=== PATIENT | female | born 1960 | race Hispanic/Latino ===

== ENCOUNTER 2020-03-05 00:09 | Inpatient (IN) | payer MEDICAID ==
[~2020-03-05] VITALS: Ht 157.5 cm; Wt 111.3 kg
[2020-03-05] MEDS ORDERED: FUROSEMIDE 10 MG/ML 2ML VIAL ONE ×2 (00:17→05:59)
[2020-03-05] MEDS ORDERED: CEFTRIAXONE SODIUM 2 GM VIAL ONE (00:27)
[2020-03-05] MEDS ORDERED: SODIUM CHLORIDE 0.9% 100 ML IV ONE (00:28)
[2020-03-05 00:39] LABS: ABG BASE EXCESS -9.3 mmol/L (-2.0-3.0); ABG HCO3 14.9 mmol/L (21.0-28.0); ABG OXYGEN SATURATION 97.6 % (95.0-99.0); ABG PCO2 29 mmHg (32-45)
[2020-03-05] MEDS ORDERED: AZITHROMYCIN 500MG+NS 250ML 250 ML IV ONE (00:55)
[2020-03-05 01:02] LABS: BASOPHILS % (AUTO) 0.4 % (0.0-5.0); EOSINOPHILS % (AUTO) 0.8 % (0.0-8.0); HEMATOCRIT 42.1 % (36-48); LYMPHOCYTES % (AUTO) 9.6 % (21.0-51.0); MEAN CORPUSCULAR HEMOGLOBIN 28.3 pg (27.0-33.0); MEAN CORPUSCULAR HGB CONC 31.6 g/dL (32.0-36.0); MEAN CORPUSCULAR VOLUME 89.6 fL (79-99); MONOCYTES % (AUTO) 4.2 % (3.0-13.0); NEUTROPHILS % (AUTO) 84.7 % (40.0-77.0); PLATELET COUNT (AUTO) 220 K/uL (130-400); RED CELL DISTRIBUTION WIDTH 15.9 % (11.0-15.5); WHITE BLOOD COUNT (AUTO) 14.4 K/uL (4.8-10.8)
[2020-03-05 01:08] LABS: CARBON DIOXIDE 18 mmol/L (21-32); CHLORIDE 100 mmol/L (101-111); CREATININE 2.7 mg/dL (0.5-1.5); GLOMERULAR FILTR. RATE CALC 19 mL/min (>60); GLUCOSE,RANDOM 171 mg/dL (70-105); POTASSIUM 4.8 mmol/L (3.5-5.1); SODIUM SERUM 135 mmol/L (136-145); UREA NITROGEN, BLOOD 44 mg/dL (7-18)
[2020-03-05 01:09] LABS: INR 1.21 (0.85-1.15); PARTIAL THROMBOPLASTIN TIME 29.4 SEC (26.3-35.5)
[2020-03-05 01:21] LABS: ALANINE AMINOTRANSFERASE 13 U/L (12-78); ALBUMIN 3.4 g/dL (3.5-5.0); ASPARTATE AMINOTRANSFERASE 41 U/L (10-37); BILIRUBIN,TOTAL 1.2 mg/dL (0.2-1.0); CREATINE KINASE, TOTAL 51 U/L (21-232); MYOGLOBIN 66 ng/mL (10-92); TOTAL PROTEIN, SERUM 8.3 g/dL (6.0-8.3); TROPONIN I < 0.04 ng/mL (0.00-0.06)
[2020-03-05 01:24] LABS: B-TYPE NATRIURETIC PEPTIDE 1460 pg/mL (0-100)
[2020-03-05] MEDS ORDERED: ACETAMINOPHEN 325 MG TAB PO PRN ×2 (02:00)
[2020-03-05] MEDS: DOXYCYCLINE 100MG+NS 250ML 250 ML IV SCH ×2 (02:00→15:37)
[2020-03-05] MEDS ORDERED: ONDANSETRON HCL 4 MG/2 ML VIAL IV PRN (02:00)
[2020-03-05] MEDS: AZITHROMYCIN 500MG+NS 250ML 250 ML IV SCH (02:00)
[2020-03-05] MEDS ORDERED: ALBUTEROL INHALER 90MCG/INH IH PRN (02:15)
[2020-03-05 03:14] LABS: CREATININE 2.7 mg/dL (0.5-1.5)
[2020-03-05 04:44] LABS: APPEARANCE,URINE Turbid (CLEAR); BILIRUBIN,URINE Small (NEGATIVE); COLOR,URINE Dark Yellow (YELLOW); GLUCOSE, URINE (UA) Negative (NEGATIVE); KETONES,URINE Trace mg/dL (NEGATIVE); LEUKOCYTE ESTERASE ,URINE Small (NEGATIVE); NITRATE,URINE Negative (NEGATIVE); OCCULT BLOOD,URINE Large (NEGATIVE); PROTEIN,URINE POS 2+ mg/dL (NEGATIVE)
[2020-03-05 05:02] LABS: AMORPHOUS SEDIMENT,UR Many /LPF (None Seen); BACTERIA,URINE Rare /HPF (None Seen); MUCUS,URINE Moderate LPF (None Seen); SQUAMOUS EPITHELIAL CELL,UR Moderate /HPF (0-2)
[2020-03-05 05:57] LABS: ABG BASE EXCESS -3.5 mmol/L (-2.0-3.0); ABG PCO2 32 mmHg (32-45)
[2020-03-05] MEDS ORDERED: ERGOCALCIFEROL (VITAMIN D2) 50,000 UNIT CAPSULE ONE (05:58)
[2020-03-05] MEDS: FUROSEMIDE 10 MG/ML 2ML VIAL IV SCH ×4 (06:00→21:43)
[2020-03-05] MEDS: INSULIN HUMULIN R 100 UNIT/ML 3ML SQ SCH ×3 (06:00→18:00)
[2020-03-05] MEDS ORDERED: DOXYCYCLINE 100MG+NS 250ML 250 ML IV ONE (06:55)
[2020-03-05] MEDS ORDERED: ERGOCALCIFEROL (VITAMIN D2) 50,000 UNIT CAPSULE PO SCH (09:00)
[2020-03-05 10:00] VITALS: BP 104/57
[2020-03-05] MEDS: ASCORBIC ACID 500 MG TAB PO SCH (10:41)
[2020-03-05] MEDS: ZINC SULFATE 220 CAPSULE PO SCH (10:42)
[2020-03-05] MEDS: ACETYLCYSTEINE 600 MG CAPSULE PO SCH ×2 (10:42→21:00)
[2020-03-05] MEDS: FAMOTIDINE/PF 20 MG/2 ML VIAL IV SCH ×2 (10:42→21:43)
[2020-03-05] MEDS: METHYLPREDNISOLONE SOD SUCC 40MG/ML 1ML IVP SCH ×3 (10:48→21:43)
[2020-03-05] MEDS: HEPARIN SODIUM 5000UNIT/ML 1ML VIAL SQ SCH ×3 (10:50→22:32)
[2020-03-05 12:00] VITALS: BP 119/69
[2020-03-05] MEDS ORDERED: PHARMACY COMMUNICATION***REMDESIVIR ORDER MISC SCH (14:00)
--- NOTE | 2020-03-05 14:09 | NUR ---
[facility] MEDICATION PROTOCAL 1. Pharmacy communication to evaluate for Remdesivir has been sent. 2. Charge nurse Amy will contact call centre supervisor to apply for Convalescent Plasma. 3. This order is per Dr. Lubin
[2020-03-05] MEDS: PHARMACY COMMUNICATION MISC SCH ×2 (14:45→22:45)
[2020-03-05 16:00] VITALS: BP 124/66
[2020-03-05 20:20] VITALS: BP 98/50
[2020-03-06] VITALS (7 sets, daily range): BP systolic 88–125; BP diastolic 50–86
[2020-03-06] MEDS: DOXYCYCLINE 100MG+NS 250ML 250 ML IV SCH ×2 (02:00→14:18)
[2020-03-06] MEDS: AZITHROMYCIN 500MG+NS 250ML 250 ML IV SCH (02:26)
[2020-03-06 04:37] LABS: BASOPHILS % (AUTO) 0.1 % (0.0-5.0); HEMATOCRIT 34.6 % (36-48); LYMPHOCYTES % (AUTO) 3.1 % (21.0-51.0); MEAN CORPUSCULAR HEMOGLOBIN 28.2 pg (27.0-33.0); MEAN CORPUSCULAR HGB CONC 32.1 g/dL (32.0-36.0); MONOCYTES % (AUTO) 1.8 % (3.0-13.0); NEUTROPHILS % (AUTO) 93.9 % (40.0-77.0); PLATELET COUNT (AUTO) 142 K/uL (130-400); RED BLOOD CELL COUNT(AUTO) 3.93 MIL/uL (4.00-5.50); RED CELL DISTRIBUTION WIDTH 15.7 % (11.0-15.5); WHITE BLOOD COUNT (AUTO) 15.5 K/uL (4.8-10.8)
[2020-03-06 04:55] LABS: ALANINE AMINOTRANSFERASE 39 U/L (12-78); ALBUMIN 2.5 g/dL (3.5-5.0); ASPARTATE AMINOTRANSFERASE 118 U/L (10-37); BILIRUBIN,TOTAL 1.5 mg/dL (0.2-1.0); CARBON DIOXIDE 24 mmol/L (21-32); CHLORIDE 104 mmol/L (101-111); CREATININE 2.5 mg/dL (0.5-1.5); GLOMERULAR FILTR. RATE CALC 21 mL/min (>60); GLUCOSE,RANDOM 135 mg/dL (70-105); LACTATE DEHYDROGENASE 404 U/L (81-234); POTASSIUM 4.1 mmol/L (3.5-5.1); SODIUM SERUM 140 mmol/L (136-145); TOTAL PROTEIN, SERUM 6.5 g/dL (6.0-8.3); UREA NITROGEN, BLOOD 57 mg/dL (7-18)
[2020-03-06 04:57] LABS: AMMONIA < 10 umol/L (11-32)
[2020-03-06] MEDS: INSULIN HUMULIN R 100 UNIT/ML 3ML SQ SCH ×4 (06:00→18:00)
[2020-03-06] MEDS: PHARMACY COMMUNICATION MISC SCH ×3 (06:24→22:45)
[2020-03-06] MEDS: FAMOTIDINE/PF 20 MG/2 ML VIAL IV SCH ×2 (09:53→21:43)
[2020-03-06] MEDS: ZINC SULFATE 220 CAPSULE PO SCH (09:53)
[2020-03-06] MEDS: METHYLPREDNISOLONE SOD SUCC 40MG/ML 1ML IVP SCH (09:53)
[2020-03-06] MEDS: ACETYLCYSTEINE 600 MG CAPSULE PO SCH ×2 (09:53→21:43)
[2020-03-06] MEDS: ASCORBIC ACID 500 MG TAB PO SCH (09:53)
[2020-03-06] MEDS: FUROSEMIDE 10 MG/ML 2ML VIAL IV SCH (09:55)
[2020-03-06] MEDS: HEPARIN SODIUM 5000UNIT/ML 1ML VIAL SQ SCH ×3 (10:01→21:44)
[2020-03-06] MEDS: FUROSEMIDE 10 MG/ML 4ML VIAL IV SCH ×2 (12:00→21:44)
--- NOTE | 2020-03-06 13:27 | NUR ---
DC PLAN PATIENT CONDITION GUARDED CPAP 19L FIO2 40% BP 88/51 RR 24. EDER WILL CONTINUE TO FOLLOW. Addendum: 03/06/20 at 1328 by ZANDRA DONALD RN CM Amended: Links added.
[2020-03-06] MEDS ORDERED: CLOP75TA32 PO (19:03)
[2020-03-06] MEDS ORDERED: ASPI-1197 PO (19:03)
[2020-03-06] MEDS ORDERED: ATOR10TA69 PO (19:03)
[2020-03-06] MEDS ORDERED: BUME1TAB6 PO (19:03)
[2020-03-06] MEDS ORDERED: SACU1TAB PO (19:03)
[2020-03-06] MEDS ORDERED: DONE5TAB33 PO (19:03)
[2020-03-06] MEDS ORDERED: ALBU0.63 IH (19:03)
[2020-03-06] MEDS ORDERED: AMIO200T5 PO (19:03)
[2020-03-06] MEDS ORDERED: HYDR25TA PO (19:03)
[2020-03-06] MEDS ORDERED: SPIR25TA6 PO (19:03)
[2020-03-06] MEDS ORDERED: CARV3.12 PO (19:03)
[2020-03-06] MEDS ORDERED: LEVO50TA11 PO (19:03)
[2020-03-07 00:25] VITALS: BP 115/67
[2020-03-07] MEDS ORDERED: SODIUM CHLORIDE 0.9% 100 ML IV ONE (01:23)
[2020-03-07] MEDS: DOXYCYCLINE 100MG+NS 250ML 250 ML IV SCH ×2 (02:00→13:31)
[2020-03-07] MEDS: AZITHROMYCIN 500MG+NS 250ML 250 ML IV SCH (02:18)
[2020-03-07 04:34] VITALS: BP 108/60
[2020-03-07 04:36] LABS: BASOPHILS % (AUTO) 0.2 % (0.0-5.0); HEMATOCRIT 38.5 % (36-48); MEAN CORPUSCULAR HEMOGLOBIN 28.1 pg (27.0-33.0); MEAN CORPUSCULAR HGB CONC 32.2 g/dL (32.0-36.0); MEAN CORPUSCULAR VOLUME 87.1 fL (79-99); MONOCYTES % (AUTO) 1.2 % (3.0-13.0); NEUTROPHILS % (AUTO) 97.1 % (40.0-77.0); PLATELET COUNT (AUTO) 139 K/uL (130-400); RED BLOOD CELL COUNT(AUTO) 4.42 MIL/uL (4.00-5.50); RED CELL DISTRIBUTION WIDTH 15.7 % (11.0-15.5); WHITE BLOOD COUNT (AUTO) 18.6 K/uL (4.8-10.8)
[2020-03-07 04:40] LABS: BILIRUBIN,TOTAL 1.4 mg/dL (0.2-1.0); CREATININE 2.4 mg/dL (0.5-1.5); CRP QUANTITATIVE 160.9 mg/L (0.00-9.0); POTASSIUM 3.6 mmol/L (3.5-5.1); TOTAL PROTEIN, SERUM 7.6 g/dL (6.0-8.3)
[2020-03-07] MEDS: INSULIN HUMULIN R 100 UNIT/ML 3ML SQ SCH ×4 (06:00→16:30)
[2020-03-07] MEDS: PHARMACY COMMUNICATION MISC SCH ×3 (06:20→13:34)
[2020-03-07 08:00] VITALS: BP 113/63
[2020-03-07] MEDS: FAMOTIDINE/PF 20 MG/2 ML VIAL IV SCH ×2 (08:44→20:44)
[2020-03-07] MEDS: ZINC SULFATE 220 CAPSULE PO SCH (08:45)
[2020-03-07] MEDS: HEPARIN SODIUM 5000UNIT/ML 1ML VIAL SQ SCH ×3 (08:45→20:47)
[2020-03-07] MEDS: ACETYLCYSTEINE 600 MG CAPSULE PO SCH ×2 (08:45→20:45)
[2020-03-07] MEDS: ASCORBIC ACID 500 MG TAB PO SCH (08:45)
[2020-03-07] MEDS ORDERED: DEXAMETHASONE SOD PHOSPHATE 4 MG/ML 1ML VIAL IVP SCH (09:00)
[2020-03-07] MEDS: FUROSEMIDE 10 MG/ML 4ML VIAL IV SCH ×2 (09:55→21:55)
--- NOTE | 2020-03-07 10:23 | NUR ---
DC PLAN PATIENT CONDITION GUARDED. CALLED NUMBER FOR SPOUSE. PATIENT ANSWERED. REALLY SOB NOT ABLE TO SPEAK MORE THAN A COUPLE WORDS. PATIENT NOT ABLE TO ANSWER QUESTIONS. ASKED IF SPOUSE HAD A PHONE OR ANY OTHER FAMILY AVAILABLE. SAID NO SPOUSE CAMP[facility]LL NOT HAVE PHONE. NO OTHER PHONE NUMBERS AVAILABLE. EDER WILL CONTINUE TO FOLLOW. Addendum: 03/07/20 at 1025 by ZANDRA DONALD RN CM Amended: Links added.
[2020-03-07 12:00] VITALS: BP 119/69
[2020-03-07] MEDS: METHYLPREDNISOLONE SOD SUCC 125MG/2ML VIAL IVP SCH ×2 (14:25→20:44)
[2020-03-07] MEDS ORDERED: LOPERAMIDE HCL 2 MG CAP PO PRN (14:30)
[2020-03-07] MEDS ORDERED: LOPERAMIDE HCL 2 MG CAP PO SCH (14:30)
[2020-03-07] MEDS ORDERED: ZINC OXIDE OINT 56.7 GM TP PRN (14:30)
[2020-03-07 15:03] VITALS: BP 103/72
--- NOTE | 2020-03-07 17:53 | NUR ---
FAMILY UPDATE Son, Buck, called and was updated. Son asked about w"why my mom does not eat, while on machine? You are killing her. Iexplained to the son, that while on continuous Bipap/Cpap, it is contraindicated to eat. reason was explained. So was very upset about this, stated that all other hospitals give people food while on Bipap. I explained that when Cpap is uses as PRN it is possibly after 30 min after use. I also explained that his mother O2 is decreasing to 70-80s each time she is taking the mask off. So was not happy with my explanation. demanded to talk to MD. After MD did his round, RT was able to switch CPAP to Venturi mask to 70, and later to 50%. Soft diet was placed. MD called son and had similar conversation to the son as well. While pt was eating, it was explained that it is important to sit up right, take smaller bites, and in event of any coughing, to stop eating at that time. During my observing of pt eating, pt did start coughing, but did not stop eating, continuously putting food in her mouth. O2 in 70-80s .It was explained again the importance of proper and safe eating. Pt states, "I am hungry long time". Pt again, reminded how it is important to be safe while eating, and finally, became compliant.O2 94%, VS Stable. Will continue to monitor, remind, educated and support patient.
[2020-03-07 20:00] VITALS: BP 113/68
[2020-03-07] MEDS: METRONIDAZOLE 500MG/100ML BAG 100 ML IV SCH (21:54)
[2020-03-08] VITALS (7 sets, daily range): BP systolic 95–120; BP diastolic 53–77
[2020-03-08] MEDS: INSULIN HUMULIN R 100 UNIT/ML 3ML SQ SCH ×4 (00:03→15:24)
[2020-03-08] MEDS: METHYLPREDNISOLONE SOD SUCC 125MG/2ML VIAL IVP SCH ×4 (01:30→18:50)
[2020-03-08] MEDS: AZITHROMYCIN 500MG+NS 250ML 250 ML IV SCH (02:00)
[2020-03-08] MEDS: DOXYCYCLINE 100MG+NS 250ML 250 ML IV SCH ×2 (02:00→13:27)
[2020-03-08 04:38] LABS: ALBUMIN 2.9 g/dL (3.5-5.0); BILIRUBIN,TOTAL 1.2 mg/dL (0.2-1.0); CREATININE 2.4 mg/dL (0.5-1.5); CRP QUANTITATIVE 157.7 mg/L (0.00-9.0); POTASSIUM 3.5 mmol/L (3.5-5.1); TOTAL PROTEIN, SERUM 7.5 g/dL (6.0-8.3)
[2020-03-08 05:00] LABS: BASOPHILS % (AUTO) 0.1 % (0.0-5.0); HEMATOCRIT 39.9 % (36-48); LYMPHOCYTES % (AUTO) 1.5 % (21.0-51.0); MEAN CORPUSCULAR HEMOGLOBIN 28.2 pg (27.0-33.0); MEAN CORPUSCULAR HGB CONC 31.8 g/dL (32.0-36.0); MEAN CORPUSCULAR VOLUME 88.7 fL (79-99); MONOCYTES % (AUTO) 0.8 % (3.0-13.0); NEUTROPHILS % (AUTO) 97.1 % (40.0-77.0); PLATELET COUNT (AUTO) 146 K/uL (130-400); RED CELL DISTRIBUTION WIDTH 15.9 % (11.0-15.5); WHITE BLOOD COUNT (AUTO) 14.4 K/uL (4.8-10.8)
[2020-03-08] MEDS: PHARMACY COMMUNICATION MISC SCH ×3 (06:15→22:45)
[2020-03-08] MEDS: METRONIDAZOLE 500MG/100ML BAG 100 ML IV SCH ×3 (06:15→21:37)
[2020-03-08] MEDS: FAMOTIDINE/PF 20 MG/2 ML VIAL IV SCH (08:39)
[2020-03-08] MEDS: ASCORBIC ACID 500 MG TAB PO SCH (08:39)
[2020-03-08] MEDS: ZINC SULFATE 220 CAPSULE PO SCH (08:40)
[2020-03-08] MEDS: ACETYLCYSTEINE 600 MG CAPSULE PO SCH ×2 (08:40→21:37)
[2020-03-08] MEDS: HEPARIN SODIUM 5000UNIT/ML 1ML VIAL SQ SCH ×3 (08:41→22:40)
[2020-03-08] MEDS: FUROSEMIDE 10 MG/ML 4ML VIAL IV SCH (09:03)
[2020-03-08] MEDS: FUROSEMIDE 40 MG TABLET PO SCH (16:11)
--- NOTE | 2020-03-08 17:50 | NUR ---
Pt needs reinforcement again and again to not to take mask off. She continuously talking on the phone, usually taking her mask off and desats in 70s during that time. I came to the room, pt was eating food, sats in 60s. I told her to put mask back on, and not to eat at least for 5 minutes. Explained the importance of oxygen to the organs. She said, "but I need to eat". It was explained again, emotional support was given. RT called to the bedside. Pt sats in90s at this time. Will continue to monitor, reinforce and reeducate and support.
[2020-03-09] VITALS (7 sets, daily range): BP systolic 84–122; BP diastolic 53–80
[2020-03-09] MEDS: DOXYCYCLINE 100MG+NS 250ML 250 ML IV SCH ×2 (01:59→14:22)
[2020-03-09] MEDS: METHYLPREDNISOLONE SOD SUCC 125MG/2ML VIAL IVP SCH ×4 (01:59→20:00)
[2020-03-09] MEDS: AZITHROMYCIN 500MG+NS 250ML 250 ML IV SCH (01:59)
[2020-03-09 04:37] LABS: HEMATOCRIT 42.4 % (36-48); LYMPHOCYTES % (AUTO) 1.6 % (21.0-51.0); MEAN CORPUSCULAR HEMOGLOBIN 27.7 pg (27.0-33.0); MEAN CORPUSCULAR HGB CONC 31.6 g/dL (32.0-36.0); MEAN CORPUSCULAR VOLUME 87.6 fL (79-99); MONOCYTES % (AUTO) 1.1 % (3.0-13.0); NEUTROPHILS % (AUTO) 96.9 % (40.0-77.0); PLATELET COUNT (AUTO) 137 K/uL (130-400); RED BLOOD CELL COUNT(AUTO) 4.84 MIL/uL (4.00-5.50); RED CELL DISTRIBUTION WIDTH 15.9 % (11.0-15.5); WHITE BLOOD COUNT (AUTO) 11.4 K/uL (4.8-10.8)
[2020-03-09 05:10] LABS: HEMOGLOBIN A1C 7.1 % (4.0-6.0)
[2020-03-09 05:20] LABS: BILIRUBIN,TOTAL 1.2 mg/dL (0.2-1.0); CREATININE 2.2 mg/dL (0.5-1.5); CRP QUANTITATIVE 150.3 mg/L (0.00-9.0); POTASSIUM 3.3 mmol/L (3.5-5.1); TOTAL PROTEIN, SERUM 7.6 g/dL (6.0-8.3)
[2020-03-09] MEDS: INSULIN HUMULIN R 100 UNIT/ML 3ML SQ SCH ×4 (06:00→17:06)
[2020-03-09] MEDS: METRONIDAZOLE 500MG/100ML BAG 100 ML IV SCH ×3 (06:36→22:34)
[2020-03-09] MEDS: PHARMACY COMMUNICATION MISC SCH ×3 (06:45→22:45)
[2020-03-09] MEDS: FAMOTIDINE 20MG TAB 20 MG TAB PO SCH (09:13)
[2020-03-09] MEDS: FUROSEMIDE 40 MG TABLET PO SCH ×2 (09:13→17:05)
[2020-03-09] MEDS: ACETYLCYSTEINE 600 MG CAPSULE PO SCH ×2 (09:13→20:00)
[2020-03-09] MEDS: ZINC SULFATE 220 CAPSULE PO SCH (09:13)
[2020-03-09] MEDS: ASCORBIC ACID 500 MG TAB PO SCH (09:17)
[2020-03-09] MEDS: HEPARIN SODIUM 5000UNIT/ML 1ML VIAL SQ SCH ×3 (09:17→19:59)
[2020-03-09] MEDS: SPIRONOLACTONE 25 MG TAB PO SCH (09:18)
[2020-03-09] MEDS ORDERED: POTASSIUM CHLORIDE 20 MEQ ERTAB PO SCH (10:00)
[2020-03-09] MEDS ORDERED: LORAZEPAM 2 MG/ML 1 ML VIAL IVP ONE (23:45)
[2020-03-09] MEDS ORDERED: LORAZEPAM 2 MG/ML 1 ML VIAL ONE (23:51)
[2020-03-10] VITALS (57 sets, daily range): BP systolic 79–118; BP diastolic 29–64
[2020-03-10] MEDS: DOXYCYCLINE 100MG+NS 250ML 250 ML IV SCH ×2 (02:00→13:55)
[2020-03-10] MEDS ORDERED: FUROSEMIDE 10 MG/ML 2ML VIAL IV SCH (02:00)
[2020-03-10] MEDS: AZITHROMYCIN 500MG+NS 250ML 250 ML IV SCH (02:00)
[2020-03-10] MEDS ORDERED: FUROSEMIDE 10 MG/ML 2ML VIAL ONE (02:03)
[2020-03-10 02:10] LABS: ABG HCO3 16.7 mmol/L (21.0-28.0); ABG OXYGEN SATURATION 89.7 % (95.0-99.0); ABG PCO2 36 mmHg (32-45)
[2020-03-10] MEDS ORDERED: LORAZEPAM 2 MG/ML 1 ML VIAL ONE (02:21)
[2020-03-10] MEDS: NITROGLYCERIN 1GM/1 INCH PACKET TD SCH (02:30)
[2020-03-10] MEDS: ALBUTEROL INHALER 90MCG/INH IH SCH ×6 (02:30→22:00)
[2020-03-10] MEDS ORDERED: LORAZEPAM 2 MG/ML 1 ML VIAL IVP ONE (02:30)
--- NOTE | 2020-03-10 03:23 | NUR ---
TACHYPNEA,HYPOXIA, AND CONFUSION PT PLACED ON BIPAP 18/7 RATE OF 16 AND 60% FIO2 AFTER SHIFT CHANGE. SPO2 RANGING FROM 65-80'S. AFTER BIPAP PT WAS BREATHING FAST WITH RR IN THE 40'S YOUSUF MELTER SUPERVISOR WAS NOTIFIED AND ATIVAN 0.5MG GIVEN X2, ABG DRAWN AND 02 ON BIPAP WAS INCREASED TO 80%. LASIX 20MG IVP WAS ALSO GIVEN, NTG PASTE HELD DUE TO MARGINAL BP. CONSTANT REINFORCEMENT TO KEEP BIPAP ON. PT WAS NOTED TO BE MILDLY CONFUSED AND EASILY REORIENTED. HOWEVER PT IS THRASHING IN BED MELTER SUPERVISOR NOTIFIED.
[2020-03-10] MEDS ORDERED: MIDAZOLAM HCL 1 MG/ML 2ML VIAL ONE (04:01)
--- NOTE | 2020-03-10 04:25 | NUR ---
TRANSFER TO ICU PT INTUBATED AT BEDSIDE BY DR. GÓMEZ FROM ER FOR REFRACTORY HYPOXIA AND TACHYPNEIC. RT AT BEDSIDE FOR ASSISTANCE. OG WAS ALSO PLACED, AIR BOLUS GIVEN. PT REMAINED HEMODYNAMICALLY STABLE AFTER ETOMIDATE AND SUCC GIVEN FOR INTUBATION. CXR ORDERED FOR TUBE VERIFICATION. LABS DRAWN. TRANSFERRED TO ICU ROOM 207. REPORT GIVEN TO MARÍA LI
[2020-03-10] MEDS ORDERED: PROPOFOL 1000 MG/100 ML 100 ML IV ONE (04:30)
[2020-03-10] MEDS: METHYLPREDNISOLONE SOD SUCC 125MG/2ML VIAL IVP SCH ×4 (04:58→21:51)
[2020-03-10] MEDS ORDERED: PHENYLEPHRINE HCL 10 MG in SODIUM CHLORIDE 0.9% 250 ML IV PRN (05:00)
--- NOTE | 2020-03-10 05:03 | NUR ---
ASSUMED CARE OF THIS PATIENT AT 0430. PATIENT ALREADY INTUBATED [facility] FOR SEDATION. HEART RATE-89 BLOOD PRESSURE 116/45 WITH MAP F 78 OXYGEN SATURATION 93% WILL CONTINUE TO MONITOR. Addendum: 03/10/20 at 0655 by ROULA WYLIE RN RN CRITICAL CARE PHYSICIAN NOTIFED OF PATIENT STATUS. SEDATION AND ABG WAS ORDERED.
[2020-03-10 05:08] LABS: BASOPHILS % (AUTO) 0.2 % (0.0-5.0); EOSINOPHILS % (AUTO) 0.7 % (0.0-8.0); HEMATOCRIT 44.1 % (36-48); LYMPHOCYTES % (AUTO) 2.4 % (21.0-51.0); MEAN CORPUSCULAR HEMOGLOBIN 28.4 pg (27.0-33.0); MEAN CORPUSCULAR HGB CONC 32.4 g/dL (32.0-36.0); MEAN CORPUSCULAR VOLUME 87.7 fL (79-99); MONOCYTES % (AUTO) 1.7 % (3.0-13.0); NEUTROPHILS % (AUTO) 94.1 % (40.0-77.0); NUCLEATED RED BLOOD CELLS 0.1 % (0.0-0.19); PLATELET COUNT (AUTO) 334 K/uL (130-400); RED BLOOD CELL COUNT(AUTO) 5.03 MIL/uL (4.00-5.50); RED CELL DISTRIBUTION WIDTH 17.3 % (11.0-15.5); WHITE BLOOD COUNT (AUTO) 16.5 K/uL (4.8-10.8)
[2020-03-10] MEDS: METRONIDAZOLE 500MG/100ML BAG 100 ML IV SCH ×3 (06:00→21:51)
[2020-03-10] MEDS: INSULIN HUMULIN R 100 UNIT/ML 3ML SQ SCH ×3 (06:13→12:00)
[2020-03-10 06:45] LABS: ALANINE AMINOTRANSFERASE 33 U/L (12-78); ALBUMIN 3.1 g/dL (3.5-5.0); ASPARTATE AMINOTRANSFERASE 82 U/L (10-37); BILIRUBIN,TOTAL 1.4 mg/dL (0.2-1.0); CARBON DIOXIDE 16 mmol/L (21-32); CHLORIDE 104 mmol/L (101-111); CREATINE KINASE, TOTAL 392 U/L (21-232); CREATININE 2.6 mg/dL (0.5-1.5); GLOMERULAR FILTR. RATE CALC 20 mL/min (>60); GLUCOSE,RANDOM 238 mg/dL (70-105); LACTATE DEHYDROGENASE 798 U/L (81-234); MYOGLOBIN 435 ng/mL (10-92); POTASSIUM 3.9 mmol/L (3.5-5.1); SODIUM SERUM 141 mmol/L (136-145); TOTAL PROTEIN, SERUM 7.7 g/dL (6.0-8.3); TROPONIN I < 0.04 ng/mL (0.00-0.06)
[2020-03-10] MEDS: PHARMACY COMMUNICATION MISC SCH ×3 (06:45→22:45)
[2020-03-10 06:48] LABS: UREA NITROGEN, BLOOD 79 mg/dL (7-18)
[2020-03-10] MEDS ORDERED: PROPOFOL 1000 MG/100 ML IV PRN (07:00)
[2020-03-10] MEDS ORDERED: FENTANYL CITRATE PF 0.05 MG/ML 2,500 MCG in SODIUM CHLORIDE 0.9% 250 ML PRN (07:00)
[2020-03-10 07:07] LABS: ABG BASE EXCESS -11.7 mmol/L (-2.0-3.0); ABG HCO3 14.9 mmol/L (21.0-28.0); ABG OXYGEN SATURATION 83.7 % (95.0-99.0); ABG PCO2 36 mmHg (32-45)
[2020-03-10] MEDS: SPIRONOLACTONE 25 MG TAB PO SCH (09:00)
[2020-03-10] MEDS ORDERED: FENTANYL CITRATE PF 0.05 MG/ML 1,000 MCG in SODIUM CHLORIDE 0.9% 100 ML PRN (09:00)
[2020-03-10] MEDS ORDERED: MIDAZOLAM 100MG-0.9% NS 100ML 50 ML IV PRN (09:00)
[2020-03-10] MEDS ORDERED: SODIUM CHLORIDE 0.9% IV PRN (09:00)
[2020-03-10] MEDS: ACETYLCYSTEINE 600 MG CAPSULE PO SCH ×2 (09:00→21:00)
[2020-03-10] MEDS ORDERED: CISATRACURIUM BESYLATE IV PRN (09:00)
[2020-03-10] MEDS: FUROSEMIDE 40 MG TABLET PO SCH (09:00)
[2020-03-10] MEDS ORDERED: FENTANYL 2500MCG+NS 250ML 250 ML IV SCH (09:15)
[2020-03-10 10:16] LABS: INR 1.39 (0.85-1.15); PROTHROMBIN TIME 14.8 SEC (9.6-11.6)
[2020-03-10] MEDS: MEROPENEM 1 GM VIAL IVP SCH ×2 (10:35→21:43)
[2020-03-10] MEDS: HEPARIN SODIUM 5000UNIT/ML 1ML VIAL SQ SCH (10:38)
[2020-03-10] MEDS: FAMOTIDINE 20MG TAB 20 MG TAB PO SCH (10:39)
[2020-03-10] MEDS: ZINC SULFATE 220 CAPSULE PO SCH (10:39)
[2020-03-10] MEDS: ASCORBIC ACID 500 MG TAB PO SCH (10:39)
[2020-03-10] MEDS: PROPOFOL 1000 MG/100 ML 100 ML IV PRN ×3 (10:40→19:56)
[2020-03-10] MEDS: MIDAZOLAM 100MG-0.9% NS 100ML 100 ML IV SCH ×2 (10:42→15:28)
[2020-03-10] MEDS: FENTANYL 2500MCG+NS 250ML 250 ML IV SCH ×2 (10:42→15:28)
[2020-03-10] MEDS ORDERED: NOREPINEPHRINE 4MG/NS 250ML 250 ML IV ONE (11:29)
[2020-03-10] MEDS ORDERED: SODIUM BICARB 50MEQ 50ML VIAL ONE (11:29)
[2020-03-10] MEDS ORDERED: SODIUM BICARB 50MEQ 50ML VIAL IV SCH (11:30)
[2020-03-10] MEDS ORDERED: ENOXAPARIN SODIUM 100 MG/1 ML SQ SCH (16:00)
[2020-03-10 17:02] LABS: ABG BASE EXCESS -8.5 mmol/L (-2.0-3.0); ABG HCO3 18.8 mmol/L (21.0-28.0); ABG OXYGEN SATURATION 97.9 % (95.0-99.0); ABG PCO2 45 mmHg (32-45)
[2020-03-10] MEDS: SODIUM BICARB 8.4% 50ML SYRING 150 MEQ in STERILE WATER INJ 1000ML BAG 1,000 ML IV SCH (17:30)
--- NOTE | 2020-03-10 21:42 | NUR ---
6FR 3LUMEN PICC INSERTED TO RIGHT BRACHIAL VEIN, USING ASEPTIC TECHNIQUE. UNABLE TO OBTAIN VPS BULLSEYE, CHEST XRAY ORDERED. CATHETER WAS CURLED UP, SO WAS PULLED OUT 15 CM AND THEN READVANCED INTO APPROPRIATE POSITION. SECOND XRAY TAKEN, PENDING RADIOLOGIST CONFIRMATION OF TIP PLACEMENT FOR OK TO USE. RN AWARE. ALL 3 LUMENS HAVE GOOD BLOOD RETURN, FLUSHED EASILY AND CLAMPED.
[2020-03-11] VITALS (89 sets, daily range): BP systolic 86–125; BP diastolic 35–69
[2020-03-11] MEDS: METHYLPREDNISOLONE SOD SUCC 125MG/2ML VIAL IVP SCH ×3 (00:15→13:24)
[2020-03-11] MEDS: PROPOFOL 1000 MG/100 ML 100 ML IV PRN ×5 (00:15→21:12)
[2020-03-11] MEDS: INSULIN HUMULIN R 100 UNIT/ML 3ML SQ SCH ×4 (00:17→18:55)
[2020-03-11] MEDS: FENTANYL 2500MCG+NS 250ML 250 ML IV SCH ×4 (01:41→21:11)
[2020-03-11] MEDS: ALBUTEROL INHALER 90MCG/INH IH SCH ×7 (01:44→23:48)
[2020-03-11] MEDS: AZITHROMYCIN 500MG+NS 250ML 250 ML IV SCH (01:46)
[2020-03-11] MEDS: NITROGLYCERIN 1GM/1 INCH PACKET TD SCH ×2 (01:46→23:48)
[2020-03-11 04:12] LABS: BASOPHILS % (AUTO) 0.1 % (0.0-5.0); HEMATOCRIT 41.8 % (36-48); LYMPHOCYTES % (AUTO) 1.5 % (21.0-51.0); MEAN CORPUSCULAR HEMOGLOBIN 27.7 pg (27.0-33.0); MEAN CORPUSCULAR HGB CONC 31.6 g/dL (32.0-36.0); MEAN CORPUSCULAR VOLUME 87.8 fL (79-99); NEUTROPHILS % (AUTO) 96.4 % (40.0-77.0); NUCLEATED RED BLOOD CELLS 0.3 % (0.0-0.19); PLATELET COUNT (AUTO) 207 K/uL (130-400); RED BLOOD CELL COUNT(AUTO) 4.76 MIL/uL (4.00-5.50); RED CELL DISTRIBUTION WIDTH 16.3 % (11.0-15.5)
[2020-03-11 04:17] LABS: ALBUMIN 2.5 g/dL (3.5-5.0); BILIRUBIN,TOTAL 1.3 mg/dL (0.2-1.0); CRP QUANTITATIVE 87.3 mg/L (0.00-9.0); POTASSIUM 4.1 mmol/L (3.5-5.1); TOTAL PROTEIN, SERUM 6.5 g/dL (6.0-8.3)
[2020-03-11] MEDS: PHARMACY COMMUNICATION MISC SCH ×3 (06:31→21:10)
[2020-03-11] MEDS: METRONIDAZOLE 500MG/100ML BAG 100 ML IV SCH ×3 (06:32→21:10)
[2020-03-11] MEDS: SODIUM BICARB 8.4% 50ML SYRING 150 MEQ in STERILE WATER INJ 1000ML BAG 1,000 ML IV SCH ×2 (06:32→21:10)
[2020-03-11] MEDS: MIDAZOLAM 100MG-0.9% NS 100ML 100 ML IV SCH ×2 (06:55→10:06)
[2020-03-11] MEDS: ASCORBIC ACID 500 MG TAB PO SCH (08:09)
[2020-03-11] MEDS: PANTOPRAZOLE 40 MG/VIAL IVP SCH (08:09)
[2020-03-11] MEDS: ZINC SULFATE 220 CAPSULE PO SCH (08:09)
[2020-03-11] MEDS: SPIRONOLACTONE 25 MG TAB PO SCH (08:09)
[2020-03-11] MEDS: MEROPENEM 1 GM VIAL IVP SCH ×2 (08:09→21:10)
[2020-03-11] MEDS: ACETYLCYSTEINE 600 MG CAPSULE PO SCH ×2 (08:09→21:00)
[2020-03-11 09:07] LABS: ABG BASE EXCESS -9.7 mmol/L (-2.0-3.0); ABG HCO3 17.8 mmol/L (21.0-28.0); ABG OXYGEN SATURATION 97.9 % (95.0-99.0); ABG PCO2 45 mmHg (32-45)
[2020-03-11] MEDS: SODIUM BICARBONATE 650 MG TAB PO SCH ×3 (09:39→21:00)
[2020-03-11] MEDS: ENOXAPARIN SODIUM 100 MG/1 ML SQ SCH (09:40)
[2020-03-11] MEDS ORDERED: HYDROCORTISONE SOD SUCCINATE 100 MG/2 ML VIAL ONE (12:13)
[2020-03-11] MEDS: NOREPINEPHRINE 4MG/NS 250ML 250 ML IV PRN (12:24)
[2020-03-11] MEDS ORDERED: FUROSEMIDE 10 MG/ML 4ML VIAL ONE (12:26)
[2020-03-11 12:38] LABS: ABG BASE EXCESS -7.6 mmol/L (-2.0-3.0); ABG HCO3 19.9 mmol/L (21.0-28.0); ABG OXYGEN SATURATION 88.4 % (95.0-99.0); ABG PCO2 48 mmHg (32-45)
[2020-03-11] MEDS: HYDROCORTISONE SOD SUCCINATE 100 MG/2 ML VIAL IV SCH ×2 (13:24→17:11)
[2020-03-11] MEDS ORDERED: FUROSEMIDE 10 MG/ML 4ML VIAL IV SCH (14:00)
[2020-03-11] MEDS ORDERED: NOREPINEPHRINE BITARTRATE 8 MG/NS 250ML IV SCH ×2 (17:45)
[2020-03-12] VITALS (83 sets, daily range): BP systolic 69–126; BP diastolic 28–76
[2020-03-12] MEDS: HYDROCORTISONE SOD SUCCINATE 100 MG/2 ML VIAL IV SCH ×4 (00:01→18:14)
[2020-03-12] MEDS: AZITHROMYCIN 500MG+NS 250ML 250 ML IV SCH (00:14)
[2020-03-12] MEDS: MIDAZOLAM 100MG-0.9% NS 100ML 100 ML IV SCH (01:58)
[2020-03-12 04:17] LABS: APPEARANCE,URINE Cloudy (CLEAR); BILIRUBIN,URINE Negative (NEGATIVE); COLOR,URINE Yellow (YELLOW); GLUCOSE, URINE (UA) Negative (NEGATIVE); KETONES,URINE Negative (NEGATIVE); LEUKOCYTE ESTERASE ,URINE Small (NEGATIVE); NITRATE,URINE Negative (NEGATIVE); OCCULT BLOOD,URINE Nonhemolyzed Trace (NEGATIVE); PROTEIN,URINE Negative (NEGATIVE); UROBILINOGEN,URINE 0.2 mg/dL (0.2-1.0)
[2020-03-12 04:18] LABS: HEMATOCRIT 40.6 % (36-48); MEAN CORPUSCULAR HEMOGLOBIN 27.4 pg (27.0-33.0); MEAN CORPUSCULAR HGB CONC 31.8 g/dL (32.0-36.0); MEAN CORPUSCULAR VOLUME 86.4 fL (79-99); NUCLEATED RED BLOOD CELLS 0.8 % (0.0-0.19); PLATELET COUNT (AUTO) 205 K/uL (130-400); RED CELL DISTRIBUTION WIDTH 16.4 % (11.0-15.5); WHITE BLOOD COUNT (AUTO) 12.2 K/uL (4.8-10.8)
[2020-03-12 04:35] LABS: CREATININE,URINE RANDOM 55 mg/dL (30-135); SODIUM,URINE RANDOM 24 mmol/l (40-220)
[2020-03-12 04:40] LABS: ALBUMIN 2.2 g/dL (3.5-5.0); BILIRUBIN,TOTAL 1.1 mg/dL (0.2-1.0); CREATININE 3.2 mg/dL (0.5-1.5); MAGNESIUM 1.7 mg/dL (1.80-2.40); PHOSPHORUS 4.7 mg/dL (2.5-4.9)
[2020-03-12 04:44] LABS: BACTERIA,URINE Few /HPF (None Seen); MUCUS,URINE Rare LPF (None Seen); SQUAMOUS EPITHELIAL CELL,UR Few /HPF (0-2)
[2020-03-12] MEDS: ALBUTEROL INHALER 90MCG/INH IH SCH ×5 (06:00→20:40)
[2020-03-12 06:25] LABS: BAND NEUTROPHILS % (MANUAL) 3 % (0-2); LYMPHOCYTES % (MANUAL) 1 % (22-44); MAN.DIFF COMMENT-IMPRESSION MANUAL DIFFERENTIAL; MONOCYTES % (MANUAL) 1 % (2-9); PLATELET MORPHOLOGY COMMENT ADEQUATE; SEGMENTED NEUTROPHILS % 95 % (40-70)
[2020-03-12] MEDS: PHARMACY COMMUNICATION MISC SCH (06:42)
[2020-03-12] MEDS: METRONIDAZOLE 500MG/100ML BAG 100 ML IV SCH ×3 (06:59→20:39)
[2020-03-12] MEDS: INSULIN HUMULIN R 100 UNIT/ML 3ML SQ SCH ×4 (07:01→18:00)
[2020-03-12 07:35] LABS: ABG BASE EXCESS -6.9 mmol/L (-2.0-3.0); ABG HCO3 19.9 mmol/L (21.0-28.0); ABG OXYGEN SATURATION 85.6 % (95.0-99.0); ABG PCO2 45 mmHg (32-45)
[2020-03-12] MEDS: ZINC SULFATE 220 CAPSULE PO SCH (08:03)
[2020-03-12] MEDS: ASCORBIC ACID 500 MG TAB PO SCH (08:03)
[2020-03-12] MEDS: ACETYLCYSTEINE 600 MG CAPSULE PO SCH ×2 (08:04→20:38)
[2020-03-12] MEDS: PANTOPRAZOLE 40 MG/VIAL IVP SCH (08:04)
[2020-03-12] MEDS: SODIUM BICARBONATE 650 MG TAB PO SCH ×3 (08:04→20:38)
[2020-03-12] MEDS: ENOXAPARIN SODIUM 100 MG/1 ML SQ SCH (08:04)
[2020-03-12] MEDS: ALBUMIN (HUMAN) 25% 50 ML IV SCH ×4 (10:00→20:39)
[2020-03-12] MEDS: MEROPENEM 1 GM VIAL IVP SCH ×2 (10:17→20:38)
[2020-03-12] MEDS: FUROSEMIDE 10 MG/ML 4ML VIAL IV SCH ×2 (10:22→20:39)
[2020-03-12 12:18] LABS: ABG BASE EXCESS -5.5 mmol/L (-2.0-3.0); ABG HCO3 20.3 mmol/L (21.0-28.0); ABG OXYGEN SATURATION 94.5 % (95.0-99.0); ABG PCO2 41 mmHg (32-45)
[2020-03-12] MEDS ORDERED: SODIUM CHLORIDE 0.9% 250 ML IV ONE (13:51)
[2020-03-12] MEDS: VASOPRESSIN 40 UNITS in SODIUM CHLORIDE 0.9% 40 ML IV SCH (13:56)
[2020-03-12] MEDS: PROPOFOL 1000 MG/100 ML 100 ML IV PRN (13:56)
[2020-03-12] MEDS: MAGNESIUM 2GM PREMIX 50ML 50 ML IV SCH (13:57)
[2020-03-12] MEDS ORDERED: PHARMACY COMMUNICATION MISC SCH (18:45)
[2020-03-12] MEDS ORDERED: VECURONIUM BROMIDE 10 MG ML IV PRN (19:00)
[2020-03-12] MEDS: METOCLOPRAMIDE 10 MG/2 ML VIAL IVP SCH (20:38)
[2020-03-12] MEDS: INSULIN GLARGINE 100 UNITS/ML 10 ML VIAL SQ SCH (20:42)
[2020-03-13] VITALS (83 sets, daily range): BP systolic 92–119; BP diastolic 46–62
[2020-03-13] MEDS: HYDROCORTISONE SOD SUCCINATE 100 MG/2 ML VIAL IV SCH ×4 (00:14→18:33)
[2020-03-13] MEDS: ALBUTEROL INHALER 90MCG/INH IH SCH ×6 (00:14→21:14)
[2020-03-13] MEDS: NITROGLYCERIN 1GM/1 INCH PACKET TD SCH (00:15)
[2020-03-13] MEDS: AZITHROMYCIN 500MG+NS 250ML 250 ML IV SCH (02:10)
[2020-03-13] MEDS: METRONIDAZOLE 500MG/100ML BAG 100 ML IV SCH (05:28)
[2020-03-13] MEDS: ALBUMIN (HUMAN) 25% 50 ML IV SCH ×3 (05:28→21:13)
[2020-03-13] MEDS: INSULIN HUMULIN R 100 UNIT/ML 3ML SQ SCH ×3 (06:00→18:00)
[2020-03-13 06:54] LABS: CRP QUANTITATIVE 40.7 mg/L (0.00-9.0)
[2020-03-13] MEDS: FUROSEMIDE 10 MG/ML 4ML VIAL IV SCH ×2 (07:55→21:12)
[2020-03-13] MEDS: SODIUM BICARBONATE 650 MG TAB PO SCH ×3 (07:55→21:12)
[2020-03-13] MEDS: ASCORBIC ACID 500 MG TAB PO SCH (07:55)
[2020-03-13] MEDS: ZINC SULFATE 220 CAPSULE PO SCH (07:56)
[2020-03-13] MEDS: ENOXAPARIN SODIUM 100 MG/1 ML SQ SCH (07:56)
[2020-03-13] MEDS: METOCLOPRAMIDE 10 MG/2 ML VIAL IVP SCH ×2 (07:57→21:12)
[2020-03-13 08:16] LABS: ABG OXYGEN SATURATION 93.6 % (95.0-99.0); ABG PCO2 37 mmHg (32-45)
[2020-03-13] MEDS: PANTOPRAZOLE 40 MG/VIAL IVP SCH (09:51)
[2020-03-13] MEDS: MEROPENEM 1 GM VIAL IVP SCH ×2 (09:51→21:12)
[2020-03-13] MEDS: PROPOFOL 1000 MG/100 ML 100 ML IV PRN (09:52)
[2020-03-13] MEDS: ACETYLCYSTEINE 600 MG CAPSULE PO SCH ×2 (09:52→21:12)
--- NOTE | 2020-03-13 10:06 | NUR ---
RD NOTIFICATION - TUBE FEEDING Recommend Continuous TF Nepro initiated at 15mls/hr. Goal 40mls/hr Recommend H2O Flushes at 135 Q4Hrs Recommendations faxed to [phone] RN notified. NUTRITION NOTE: Pt with no diet order placed since admit. Intubated 03/10. OGT in place. LBM 03/06. Obesity class II. Coccyx ulcer noted. Compromised renal function. Zinc and Vitamin C in place. RD to continue to monitor nutritional labs and Tube feeding tolerance. Please notify as additional nutrition concerns arise. Thank you. Addendum: 03/13/20 at [address] RD Amended: Links added.
[2020-03-13 10:51] LABS: HEMATOCRIT 39.5 % (36-48); MEAN CORPUSCULAR HEMOGLOBIN 28.3 pg (27.0-33.0); MEAN CORPUSCULAR HGB CONC 33.2 g/dL (32.0-36.0); MEAN CORPUSCULAR VOLUME 85.3 fL (79-99); NUCLEATED RED BLOOD CELLS 0.4 % (0.0-0.19); PLATELET COUNT (AUTO) 165 K/uL (130-400); RED BLOOD CELL COUNT(AUTO) 4.63 MIL/uL (4.00-5.50); RED CELL DISTRIBUTION WIDTH 16.2 % (11.0-15.5); WHITE BLOOD COUNT (AUTO) 16.8 K/uL (4.8-10.8)
[2020-03-13 11:00] LABS: CREATININE 3.3 mg/dL (0.5-1.5); MAGNESIUM 1.7 mg/dL (1.80-2.40); POTASSIUM 3.8 mmol/L (3.5-5.1)
[2020-03-13 11:55] LABS: BAND NEUTROPHILS % (MANUAL) 2 % (0-2); MAN.DIFF COMMENT-IMPRESSION MANUAL DIFFERENTIAL; MONOCYTES % (MANUAL) 2 % (2-9); PLATELET MORPHOLOGY COMMENT ADEQUATE; SEGMENTED NEUTROPHILS % 96 % (40-70)
--- NOTE | 2020-03-13 17:59 | NUR ---
cm note spoke to pt's son Buck rosales, states pt resides at home with spouse, and him, and other extended family members, pt uses walker ,sc, bsc, lift chair nebulizer and ambulates very little requires assist of other person. has provider appox 5hrs daily. son tansports to md. discussed snf/ltach level of care and son states pt has been at snf facilities in the past, but states she doesnt wish to go again, wants to go home with Home PT at time of dc. informed would f/u with pt and familyas pt progreses and f/u with any md recommendations. Addendum: 03/13/20 at 1813 by KUSUM GERONIMO CM Amended: Links added.
[2020-03-13] MEDS: INSULIN GLARGINE 100 UNITS/ML 10 ML VIAL SQ SCH (21:17)
[2020-03-14] VITALS (74 sets, daily range): BP systolic 89–119; BP diastolic 35–61
[2020-03-14] MEDS: HYDROCORTISONE SOD SUCCINATE 100 MG/2 ML VIAL IV SCH ×4 (01:09→16:08)
[2020-03-14] MEDS: INSULIN HUMULIN R 100 UNIT/ML 3ML SQ SCH ×4 (01:10→18:00)
[2020-03-14] MEDS: ALBUTEROL INHALER 90MCG/INH IH SCH ×3 (01:12→21:26)
[2020-03-14] MEDS: NITROGLYCERIN 1GM/1 INCH PACKET TD SCH (01:12)
[2020-03-14 04:40] LABS: MAGNESIUM 1.8 mg/dL (1.80-2.40); PHOSPHORUS 4.9 mg/dL (2.5-4.9)
[2020-03-14] MEDS: ALBUMIN (HUMAN) 25% 50 ML IV SCH (06:00)
[2020-03-14 07:35] LABS: HEMATOCRIT 37.4 % (36-48); MEAN CORPUSCULAR HEMOGLOBIN 27.9 pg (27.0-33.0); MEAN CORPUSCULAR HGB CONC 32.9 g/dL (32.0-36.0); MEAN CORPUSCULAR VOLUME 84.8 fL (79-99); PLATELET COUNT (AUTO) 145 K/uL (130-400); RED BLOOD CELL COUNT(AUTO) 4.41 MIL/uL (4.00-5.50); RED CELL DISTRIBUTION WIDTH 16.1 % (11.0-15.5); WHITE BLOOD COUNT (AUTO) 14.1 K/uL (4.8-10.8)
[2020-03-14] MEDS: METOCLOPRAMIDE 10 MG/2 ML VIAL IVP SCH (07:39)
[2020-03-14 07:47] LABS: CREATININE 3.4 mg/dL (0.5-1.5); POTASSIUM 3.5 mmol/L (3.5-5.1)
[2020-03-14 07:48] LABS: ABG BASE EXCESS -3.2 mmol/L (-2.0-3.0); ABG OXYGEN SATURATION 97.2 % (95.0-99.0); ABG PCO2 40 mmHg (32-45)
[2020-03-14] MEDS: ZINC SULFATE 220 CAPSULE PO SCH (08:15)
[2020-03-14] MEDS: MAGNESIUM 2GM PREMIX 50ML 50 ML IV SCH (08:15)
[2020-03-14] MEDS: ASCORBIC ACID 500 MG TAB PO SCH (08:15)
[2020-03-14] MEDS: PANTOPRAZOLE 40 MG/VIAL IVP SCH (08:15)
[2020-03-14] MEDS: SODIUM BICARBONATE 650 MG TAB PO SCH ×3 (08:15→20:47)
[2020-03-14] MEDS: MEROPENEM 1 GM VIAL IVP SCH ×2 (08:15→20:40)
[2020-03-14] MEDS: ENOXAPARIN SODIUM 100 MG/1 ML SQ SCH (08:16)
[2020-03-14] MEDS: FUROSEMIDE 10 MG/ML 4ML VIAL IV SCH (08:23)
[2020-03-14 08:27] LABS: LYMPHOCYTES % (MANUAL) 6 % (22-44); MAN.DIFF COMMENT-IMPRESSION MANUAL DIFFERENTIAL; MONOCYTES % (MANUAL) 1 % (2-9); SEGMENTED NEUTROPHILS % 93 % (40-70)
[2020-03-14 08:29] LABS: PLATELET MORPHOLOGY COMMENT ADEQUATE
[2020-03-14] MEDS ORDERED: BUMETANIDE 0.25 MG/ML 4 ML VIAL IVP ONE (11:36)
[2020-03-14] MEDS: FENTANYL 2500MCG+NS 250ML 250 ML IV SCH (16:10)
[2020-03-14] MEDS: PROPOFOL 1000 MG/100 ML 100 ML IV PRN (16:11)
[2020-03-14] MEDS: ACETYLCYSTEINE 600 MG CAPSULE PO SCH (20:34)
[2020-03-14] MEDS: BUMETANIDE 0.25 MG/ML 4 ML VIAL IVP SCH (21:25)
[2020-03-14] MEDS: INSULIN GLARGINE 100 UNITS/ML 10 ML VIAL SQ SCH (22:55)
[2020-03-15] VITALS (68 sets, daily range): BP systolic 90–122; BP diastolic 38–61
[2020-03-15] MEDS: HYDROCORTISONE SOD SUCCINATE 100 MG/2 ML VIAL IV SCH ×5 (00:02→23:39)
[2020-03-15] MEDS: ALBUTEROL INHALER 90MCG/INH IH SCH ×6 (02:00→22:00)
[2020-03-15] MEDS: NITROGLYCERIN 1GM/1 INCH PACKET TD SCH ×2 (02:30→11:15)
[2020-03-15 06:36] LABS: BASOPHILS % (AUTO) 0.1 % (0.0-5.0); HEMATOCRIT 35.8 % (36-48); LYMPHOCYTES % (AUTO) 1.3 % (21.0-51.0); MEAN CORPUSCULAR HEMOGLOBIN 28.3 pg (27.0-33.0); MEAN CORPUSCULAR VOLUME 85.9 fL (79-99); NEUTROPHILS % (AUTO) 95.6 % (40.0-77.0); NUCLEATED RED BLOOD CELLS 0.1 % (0.0-0.19); PLATELET COUNT (AUTO) 127 K/uL (130-400); RED BLOOD CELL COUNT(AUTO) 4.17 MIL/uL (4.00-5.50); RED CELL DISTRIBUTION WIDTH 16.1 % (11.0-15.5); WHITE BLOOD COUNT (AUTO) 14.2 K/uL (4.8-10.8)
[2020-03-15 06:46] LABS: CREATININE 3.6 mg/dL (0.5-1.5); POTASSIUM 3.5 mmol/L (3.5-5.1)
[2020-03-15] MEDS: INSULIN HUMULIN R 100 UNIT/ML 3ML SQ SCH ×4 (06:46→19:12)
[2020-03-15 07:16] LABS: ABG BASE EXCESS -3.8 mmol/L (-2.0-3.0); ABG HCO3 22.3 mmol/L (21.0-28.0); ABG OXYGEN SATURATION 94.3 % (95.0-99.0); ABG PCO2 44 mmHg (32-45)
[2020-03-15 07:59] LABS: MAGNESIUM 2.4 mg/dL (1.80-2.40); PHOSPHORUS 5.4 mg/dL (2.5-4.9)
[2020-03-15] MEDS: ZINC SULFATE 220 CAPSULE PO SCH (09:07)
[2020-03-15] MEDS: ENOXAPARIN SODIUM 100 MG/1 ML SQ SCH (09:07)
[2020-03-15] MEDS: SODIUM BICARBONATE 650 MG TAB PO SCH ×3 (09:07→21:00)
[2020-03-15] MEDS: BUMETANIDE 0.25 MG/ML 4 ML VIAL IVP SCH ×2 (09:07→21:00)
[2020-03-15] MEDS: ASCORBIC ACID 500 MG TAB PO SCH (09:07)
[2020-03-15] MEDS: MEROPENEM 1 GM VIAL IVP SCH ×2 (09:08→21:15)
[2020-03-15] MEDS: ACETYLCYSTEINE 600 MG CAPSULE PO SCH ×2 (09:09→21:00)
[2020-03-15] MEDS: PANTOPRAZOLE 40 MG/VIAL IVP SCH (09:09)
[2020-03-15] MEDS: MIDAZOLAM 100MG-0.9% NS 100ML 100ML BAG IV SCH (11:19)
[2020-03-15] MEDS: INSULIN GLARGINE 100 UNITS/ML 10 ML VIAL SQ SCH (21:00)
[2020-03-16] VITALS (74 sets, daily range): BP systolic 85–128; BP diastolic 37–65
[2020-03-16] MEDS: ALBUTEROL INHALER 90MCG/INH IH SCH ×6 (02:00→20:14)
[2020-03-16 04:40] LABS: BASOPHILS % (AUTO) 0.1 % (0.0-5.0); HEMATOCRIT 37.6 % (36-48); LYMPHOCYTES % (AUTO) 0.6 % (21.0-51.0); MEAN CORPUSCULAR HEMOGLOBIN 27.4 pg (27.0-33.0); MEAN CORPUSCULAR HGB CONC 32.2 g/dL (32.0-36.0); MEAN CORPUSCULAR VOLUME 85.3 fL (79-99); MONOCYTES % (AUTO) 1.2 % (3.0-13.0); NEUTROPHILS % (AUTO) 97.1 % (40.0-77.0); PLATELET COUNT (AUTO) 115 K/uL (130-400); RED BLOOD CELL COUNT(AUTO) 4.41 MIL/uL (4.00-5.50); WHITE BLOOD COUNT (AUTO) 16.2 K/uL (4.8-10.8)
[2020-03-16 05:10] LABS: CREATININE 3.5 mg/dL (0.5-1.5); POTASSIUM 3.1 mmol/L (3.5-5.1)
[2020-03-16] MEDS: HYDROCORTISONE SOD SUCCINATE 100 MG/2 ML VIAL IV SCH ×3 (05:45→17:54)
[2020-03-16] MEDS: INSULIN HUMULIN R 100 UNIT/ML 3ML SQ SCH ×4 (06:00→18:00)
[2020-03-16] MEDS: ASCORBIC ACID 500 MG TAB PO SCH (08:54)
[2020-03-16] MEDS: ZINC SULFATE 220 CAPSULE PO SCH (08:54)
[2020-03-16] MEDS: ACETYLCYSTEINE 600 MG CAPSULE PO SCH ×2 (08:54→19:52)
[2020-03-16] MEDS: PANTOPRAZOLE 40 MG/VIAL IVP SCH (08:55)
[2020-03-16] MEDS: SODIUM BICARBONATE 650 MG TAB PO SCH ×3 (08:55→19:52)
[2020-03-16] MEDS: BUMETANIDE 0.25 MG/ML 4 ML VIAL IVP SCH ×2 (08:55→19:52)
[2020-03-16] MEDS: ENOXAPARIN SODIUM 100 MG/1 ML SQ SCH (08:58)
[2020-03-16] MEDS: MEROPENEM 1 GM VIAL IVP SCH ×2 (08:58→20:13)
[2020-03-16] MEDS: FENTANYL 2500MCG+NS 250ML 250 ML IV SCH (09:11)
[2020-03-16] MEDS: MIDAZOLAM 100MG-0.9% NS 100ML 100ML BAG IV SCH (09:12)
[2020-03-16] MEDS: NOREPINEPHRINE 4MG/NS 250ML 250 ML IV PRN (11:15)
[2020-03-16] MEDS ORDERED: LIDOCAINE HCL-MPF 1% 2ML VIAL IV PRN (11:45)
[2020-03-16] MEDS: POTASSIUM CHLORIDE 20MEQ/100ML 100 ML IV PRN ×2 (13:13→16:29)
[2020-03-16] MEDS: NITROGLYCERIN 1GM/1 INCH PACKET TD SCH (13:17)
[2020-03-16] MEDS: INSULIN GLARGINE 100 UNITS/ML 10 ML VIAL SQ SCH (20:13)
[2020-03-17] VITALS (51 sets, daily range): BP systolic 86–138; BP diastolic 42–73
[2020-03-17] MEDS: ALBUTEROL INHALER 90MCG/INH IH SCH ×5 (00:14→20:53)
[2020-03-17] MEDS: HYDROCORTISONE SOD SUCCINATE 100 MG/2 ML VIAL IV SCH ×4 (00:20→17:31)
[2020-03-17 04:24] LABS: BASOPHILS % (AUTO) 0.2 % (0.0-5.0); HEMATOCRIT 37.4 % (36-48); LYMPHOCYTES % (AUTO) 0.9 % (21.0-51.0); MEAN CORPUSCULAR HEMOGLOBIN 27.9 pg (27.0-33.0); MEAN CORPUSCULAR HGB CONC 32.6 g/dL (32.0-36.0); MEAN CORPUSCULAR VOLUME 85.4 fL (79-99); MONOCYTES % (AUTO) 1.5 % (3.0-13.0); NEUTROPHILS % (AUTO) 96.2 % (40.0-77.0); PLATELET COUNT (AUTO) 190 K/uL (130-400); RED BLOOD CELL COUNT(AUTO) 4.38 MIL/uL (4.00-5.50); RED CELL DISTRIBUTION WIDTH 16.7 % (11.0-15.5)
[2020-03-17] MEDS: INSULIN HUMULIN R 100 UNIT/ML 3ML SQ SCH ×4 (05:32→17:38)
[2020-03-17] MEDS: FENTANYL 2500MCG+NS 250ML 250 ML IV SCH ×2 (05:34→14:25)
[2020-03-17] MEDS: VASOPRESSIN 40 UNITS in SODIUM CHLORIDE 0.9% 40 ML IV SCH (05:34)
[2020-03-17] MEDS: PROPOFOL 1000 MG/100 ML 100 ML IV PRN ×3 (05:34→14:25)
[2020-03-17 05:58] LABS: CREATININE 3.7 mg/dL (0.5-1.5); POTASSIUM 3.6 mmol/L (3.5-5.1)
[2020-03-17] MEDS: ZINC SULFATE 220 CAPSULE PO SCH (08:17)
[2020-03-17] MEDS: ASCORBIC ACID 500 MG TAB PO SCH (08:17)
[2020-03-17] MEDS: POTASSIUM CHLORIDE 20MEQ/100ML 100 ML IV PRN (08:18)
[2020-03-17] MEDS: ACETYLCYSTEINE 600 MG CAPSULE PO SCH ×2 (08:19→20:46)
[2020-03-17] MEDS: SODIUM BICARBONATE 650 MG TAB PO SCH ×3 (08:19→20:46)
[2020-03-17] MEDS: ENOXAPARIN SODIUM 100 MG/1 ML SQ SCH (08:20)
[2020-03-17] MEDS: BUMETANIDE 0.25 MG/ML 4 ML VIAL IVP SCH ×2 (08:20→20:45)
[2020-03-17] MEDS: MEROPENEM 1 GM VIAL IVP SCH ×2 (08:20→20:46)
[2020-03-17] MEDS: PANTOPRAZOLE 40 MG/VIAL IVP SCH (08:58)
[2020-03-17] MEDS ORDERED: MIDODRINE HCL 5 MG TABLET PO SCH (09:45)
[2020-03-17] MEDS: MIDAZOLAM 100MG-0.9% NS 100ML 100ML BAG IV SCH (11:00)
[2020-03-17] MEDS: NITROGLYCERIN 1GM/1 INCH PACKET TD SCH (11:15)
[2020-03-17] MEDS: MIDODRINE HCL 5 MG TABLET PO SCH ×2 (13:57→20:46)
[2020-03-17] MEDS: INSULIN GLARGINE 100 UNITS/ML 10 ML VIAL SQ SCH (20:51)
[2020-03-18] VITALS (52 sets, daily range): BP systolic 86–136; BP diastolic 35–77
[2020-03-18] MEDS: HYDROCORTISONE SOD SUCCINATE 100 MG/2 ML VIAL IV SCH ×4 (01:25→18:00)
[2020-03-18] MEDS: ALBUTEROL INHALER 90MCG/INH IH SCH ×6 (01:26→22:00)
[2020-03-18] MEDS: FENTANYL 2500MCG+NS 250ML 250 ML IV SCH (02:33)
[2020-03-18 04:13] LABS: BASOPHILS % (AUTO) 0.1 % (0.0-5.0); LYMPHOCYTES % (AUTO) 0.6 % (21.0-51.0); MEAN CORPUSCULAR HEMOGLOBIN 27.7 pg (27.0-33.0); MEAN CORPUSCULAR HGB CONC 32.2 g/dL (32.0-36.0); MONOCYTES % (AUTO) 2.1 % (3.0-13.0); NEUTROPHILS % (AUTO) 96.2 % (40.0-77.0); PLATELET COUNT (AUTO) 195 K/uL (130-400); RED BLOOD CELL COUNT(AUTO) 4.77 MIL/uL (4.00-5.50); RED CELL DISTRIBUTION WIDTH 16.9 % (11.0-15.5); WHITE BLOOD COUNT (AUTO) 26.2 K/uL (4.8-10.8)
[2020-03-18 04:32] LABS: CREATININE 3.9 mg/dL (0.5-1.5); POTASSIUM 3.6 mmol/L (3.5-5.1)
[2020-03-18] MEDS: INSULIN HUMULIN R 100 UNIT/ML 3ML SQ SCH ×4 (06:00→18:00)
[2020-03-18] MEDS: PROPOFOL 1000 MG/100 ML 100 ML IV PRN (06:47)
[2020-03-18 08:09] LABS: PHOSPHORUS 6.2 mg/dL (2.5-4.9)
[2020-03-18 08:18] LABS: MAGNESIUM 2.4 mg/dL (1.80-2.40)
[2020-03-18] MEDS: ASCORBIC ACID 500 MG TAB PO SCH (08:35)
[2020-03-18] MEDS: ENOXAPARIN SODIUM 100 MG/1 ML SQ SCH (08:35)
[2020-03-18] MEDS: MIDODRINE HCL 5 MG TABLET PO SCH ×3 (08:36→20:45)
[2020-03-18] MEDS: PANTOPRAZOLE 40 MG/VIAL IVP SCH (08:36)
[2020-03-18] MEDS: ACETYLCYSTEINE 600 MG CAPSULE PO SCH ×2 (08:36→20:42)
[2020-03-18] MEDS: BUMETANIDE 0.25 MG/ML 4 ML VIAL IVP SCH ×2 (08:36→20:42)
[2020-03-18] MEDS: SODIUM BICARBONATE 650 MG TAB PO SCH ×3 (08:36→20:42)
[2020-03-18] MEDS: ZINC SULFATE 220 CAPSULE PO SCH (08:36)
[2020-03-18] MEDS: MEROPENEM 1 GM VIAL IVP SCH ×2 (08:37→20:43)
[2020-03-18] MEDS: MIDAZOLAM 100MG-0.9% NS 100ML 100ML BAG IV SCH (08:43)
[2020-03-18] MEDS: NITROGLYCERIN 1GM/1 INCH PACKET TD SCH (10:35)
[2020-03-18] MEDS: INSULIN GLARGINE 100 UNITS/ML 10 ML VIAL SQ SCH (20:55)
[2020-03-19] VITALS (139 sets, daily range): BP systolic 70–167; BP diastolic 38–89
[2020-03-19] MEDS: HYDROCORTISONE SOD SUCCINATE 100 MG/2 ML VIAL IV SCH ×4 (00:19→18:00)
[2020-03-19] MEDS: ALBUTEROL INHALER 90MCG/INH IH SCH ×6 (01:10→22:00)
[2020-03-19 03:59] LABS: ABG BASE EXCESS -3.5 mmol/L (-2.0-3.0); ABG HCO3 23.6 mmol/L (21.0-28.0); ABG OXYGEN SATURATION 97.1 % (95.0-99.0); ABG PCO2 50 mmHg (32-45)
[2020-03-19 04:15] LABS: BASOPHILS % (AUTO) 0.1 % (0.0-5.0); HEMATOCRIT 34.9 % (36-48); LYMPHOCYTES % (AUTO) 0.9 % (21.0-51.0); MEAN CORPUSCULAR HEMOGLOBIN 27.7 pg (27.0-33.0); MEAN CORPUSCULAR HGB CONC 32.1 g/dL (32.0-36.0); MEAN CORPUSCULAR VOLUME 86.2 fL (79-99); MONOCYTES % (AUTO) 2.1 % (3.0-13.0); NEUTROPHILS % (AUTO) 96.2 % (40.0-77.0); PLATELET COUNT (AUTO) 104 K/uL (130-400); RED BLOOD CELL COUNT(AUTO) 4.05 MIL/uL (4.00-5.50); RED CELL DISTRIBUTION WIDTH 16.3 % (11.0-15.5); WHITE BLOOD COUNT (AUTO) 16.7 K/uL (4.8-10.8)
[2020-03-19 04:33] LABS: CREATININE 3.9 mg/dL (0.5-1.5); POTASSIUM 3.3 mmol/L (3.5-5.1)
[2020-03-19] MEDS: INSULIN HUMULIN R 100 UNIT/ML 3ML SQ SCH ×4 (06:00→18:00)
[2020-03-19 07:48] LABS: INR 1.14 (0.85-1.15); PARTIAL THROMBOPLASTIN TIME 37.7 SEC (26.3-35.5); PROTHROMBIN TIME 12.2 SEC (9.6-11.6)
[2020-03-19] MEDS: PANTOPRAZOLE 40 MG/VIAL IVP SCH (08:03)
[2020-03-19] MEDS: POTASSIUM CHLORIDE 20MEQ/100ML 100 ML IV PRN (08:03)
[2020-03-19] MEDS: BUMETANIDE 0.25 MG/ML 4 ML VIAL IVP SCH ×3 (08:04→22:20)
[2020-03-19] MEDS: ENOXAPARIN SODIUM 100 MG/1 ML SQ SCH (08:04)
[2020-03-19] MEDS: ZINC SULFATE 220 CAPSULE PO SCH (08:04)
[2020-03-19] MEDS: ACETYLCYSTEINE 600 MG CAPSULE PO SCH ×2 (08:05→22:20)
[2020-03-19] MEDS: ASCORBIC ACID 500 MG TAB PO SCH (08:05)
[2020-03-19] MEDS: MIDODRINE HCL 5 MG TABLET PO SCH ×3 (08:07→22:20)
[2020-03-19] MEDS: SODIUM BICARBONATE 650 MG TAB PO SCH ×3 (08:07→22:20)
[2020-03-19] MEDS: MEROPENEM 1 GM VIAL IVP SCH ×2 (08:07→22:20)
[2020-03-19] MEDS: NITROGLYCERIN 1GM/1 INCH PACKET TD SCH (11:15)
[2020-03-19] MEDS: MIDAZOLAM 100MG-0.9% NS 100ML 100ML BAG IV SCH (13:35)
[2020-03-19] MEDS ORDERED: DEXTROSE 50%-WATER 50 ML DISP.SYRIN IV ONE (14:17)
[2020-03-19] MEDS: INSULIN GLARGINE 100 UNITS/ML 10 ML VIAL SQ SCH (21:00)
[2020-03-19] MEDS ORDERED: VASOPRESSIN 20 UNITS/ML 1ML VIAL ONE (22:14)
[2020-03-20] VITALS (64 sets, daily range): BP systolic 97–127; BP diastolic 40–67
[2020-03-20] MEDS: ALBUTEROL INHALER 90MCG/INH IH SCH ×6 (02:00→22:00)
[2020-03-20 05:32] LABS: BASOPHILS % (AUTO) 0.1 % (0.0-5.0); HEMATOCRIT 32.7 % (36-48); LYMPHOCYTES % (AUTO) 0.9 % (21.0-51.0); MEAN CORPUSCULAR HEMOGLOBIN 27.7 pg (27.0-33.0); MEAN CORPUSCULAR HGB CONC 32.4 g/dL (32.0-36.0); MEAN CORPUSCULAR VOLUME 85.4 fL (79-99); MONOCYTES % (AUTO) 1.3 % (3.0-13.0); NEUTROPHILS % (AUTO) 96.8 % (40.0-77.0); PLATELET COUNT (AUTO) 115 K/uL (130-400); RED BLOOD CELL COUNT(AUTO) 3.83 MIL/uL (4.00-5.50); RED CELL DISTRIBUTION WIDTH 16.6 % (11.0-15.5)
[2020-03-20] MEDS: INSULIN HUMULIN R 100 UNIT/ML 3ML SQ SCH ×4 (06:00→17:04)
[2020-03-20 06:13] LABS: POTASSIUM 3.5 mmol/L (3.5-5.1)
[2020-03-20] MEDS: HYDROCORTISONE SOD SUCCINATE 100 MG/2 ML VIAL IV SCH ×4 (06:51→17:16)
[2020-03-20] MEDS: BUMETANIDE 0.25 MG/ML 4 ML VIAL IVP SCH ×3 (10:53→22:40)
[2020-03-20] MEDS: ENOXAPARIN SODIUM 100 MG/1 ML SQ SCH (10:54)
[2020-03-20] MEDS: PANTOPRAZOLE 40 MG/VIAL IVP SCH (10:54)
[2020-03-20] MEDS: ASCORBIC ACID 500 MG TAB PO SCH (10:55)
[2020-03-20] MEDS: ZINC SULFATE 220 CAPSULE PO SCH (10:55)
[2020-03-20] MEDS: MIDODRINE HCL 5 MG TABLET PO SCH ×3 (11:00→22:40)
[2020-03-20] MEDS: SODIUM BICARBONATE 650 MG TAB PO SCH ×3 (11:00→22:40)
[2020-03-20] MEDS: NITROGLYCERIN 1GM/1 INCH PACKET TD SCH (11:15)
[2020-03-20] MEDS: ACETYLCYSTEINE 600 MG CAPSULE PO SCH ×2 (12:27→22:40)
[2020-03-20] MEDS: MIDAZOLAM 100MG-0.9% NS 100ML 100ML BAG IV SCH ×2 (12:27→13:16)
[2020-03-20] MEDS: FENTANYL 2500MCG+NS 250ML 250 ML IV SCH (13:18)
[2020-03-20] MEDS ORDERED: CISATRACURIUM BESYLATE 2 MG/ML 10ML VIAL IV SCH (14:30)
[2020-03-20] MEDS ORDERED: CISATRACURIUM BESYLATE 100 MG in SODIUM CHLORIDE 0.9% 100 ML IV SCH (15:00)
[2020-03-20] MEDS: INSULIN GLARGINE 100 UNITS/ML 10 ML VIAL SQ SCH (21:00)
[2020-03-21] VITALS (70 sets, daily range): BP systolic 97–148; BP diastolic 42–99
[2020-03-21] MEDS: HYDROCORTISONE SOD SUCCINATE 100 MG/2 ML VIAL IV SCH ×5 (01:37→21:54)
[2020-03-21] MEDS: INSULIN HUMULIN R 100 UNIT/ML 3ML SQ SCH ×5 (01:39→23:55)
[2020-03-21] MEDS: ALBUTEROL INHALER 90MCG/INH IH SCH ×7 (01:43→22:00)
[2020-03-21 04:42] LABS: BASOPHILS % (AUTO) 0.1 % (0.0-5.0); HEMATOCRIT 34.7 % (36-48); MEAN CORPUSCULAR HEMOGLOBIN 28.1 pg (27.0-33.0); MEAN CORPUSCULAR HGB CONC 32.3 g/dL (32.0-36.0); MONOCYTES % (AUTO) 1.5 % (3.0-13.0); NEUTROPHILS % (AUTO) 95.9 % (40.0-77.0); PLATELET COUNT (AUTO) 153 K/uL (130-400); RED BLOOD CELL COUNT(AUTO) 3.99 MIL/uL (4.00-5.50); RED CELL DISTRIBUTION WIDTH 17.2 % (11.0-15.5); WHITE BLOOD COUNT (AUTO) 17.4 K/uL (4.8-10.8)
[2020-03-21 05:18] LABS: ALBUMIN 2.2 g/dL (3.5-5.0); POTASSIUM 3.7 mmol/L (3.5-5.1); TOTAL PROTEIN, SERUM 6.7 g/dL (6.0-8.3)
[2020-03-21 05:21] LABS: BILIRUBIN,TOTAL 1.2 mg/dL (0.2-1.0); CREATININE 4.2 mg/dL (0.5-1.5); CRP QUANTITATIVE 163.8 mg/L (0.00-9.0)
[2020-03-21] MEDS: PANTOPRAZOLE 40 MG/VIAL IVP SCH (08:19)
[2020-03-21] MEDS: ZINC SULFATE 220 CAPSULE PO SCH (08:19)
[2020-03-21] MEDS: MIDODRINE HCL 5 MG TABLET PO SCH ×3 (08:19→21:53)
[2020-03-21] MEDS: SODIUM BICARBONATE 650 MG TAB PO SCH ×3 (08:19→21:52)
[2020-03-21] MEDS: ASCORBIC ACID 500 MG TAB PO SCH (08:19)
[2020-03-21] MEDS: ACETYLCYSTEINE 600 MG CAPSULE PO SCH ×2 (08:19→21:53)
[2020-03-21] MEDS: BUMETANIDE 0.25 MG/ML 4 ML VIAL IVP SCH ×3 (08:19→21:54)
[2020-03-21] MEDS: NITROGLYCERIN 1GM/1 INCH PACKET TD SCH (08:20)
[2020-03-21] MEDS: ENOXAPARIN SODIUM 100 MG/1 ML SQ SCH (08:20)
[2020-03-21 13:12] LABS: ABG BASE EXCESS -5.7 mmol/L (-2.0-3.0); ABG HCO3 20.5 mmol/L (21.0-28.0); ABG OXYGEN SATURATION 79.1 % (95.0-99.0); ABG PCO2 43 mmHg (32-45)
[2020-03-21] MEDS: MIDAZOLAM 100MG-0.9% NS 100ML 100ML BAG IV SCH (18:43)
[2020-03-21] MEDS: INSULIN GLARGINE 100 UNITS/ML 10 ML VIAL SQ SCH (22:30)
[2020-03-22] VITALS (66 sets, daily range): BP systolic 88–136; BP diastolic 40–77
[2020-03-22] MEDS: ALBUTEROL INHALER 90MCG/INH IH SCH ×6 (02:00→22:00)
[2020-03-22 04:21] LABS: BASOPHILS % (AUTO) 0.1 % (0.0-5.0); HEMATOCRIT 35.7 % (36-48); LYMPHOCYTES % (AUTO) 0.7 % (21.0-51.0); MEAN CORPUSCULAR HEMOGLOBIN 28.2 pg (27.0-33.0); MEAN CORPUSCULAR HGB CONC 32.5 g/dL (32.0-36.0); MEAN CORPUSCULAR VOLUME 86.7 fL (79-99); MONOCYTES % (AUTO) 0.4 % (3.0-13.0); PLATELET COUNT (AUTO) 157 K/uL (130-400); RED BLOOD CELL COUNT(AUTO) 4.12 MIL/uL (4.00-5.50); RED CELL DISTRIBUTION WIDTH 17.2 % (11.0-15.5); WHITE BLOOD COUNT (AUTO) 16.8 K/uL (4.8-10.8)
[2020-03-22 04:50] LABS: ALBUMIN 2.2 g/dL (3.5-5.0); BILIRUBIN,TOTAL 1.1 mg/dL (0.2-1.0); CREATININE 4.6 mg/dL (0.5-1.5); CRP QUANTITATIVE 114.9 mg/L (0.00-9.0); POTASSIUM 4.2 mmol/L (3.5-5.1); TOTAL PROTEIN, SERUM 7.1 g/dL (6.0-8.3)
[2020-03-22] MEDS: INSULIN HUMULIN R 100 UNIT/ML 3ML SQ SCH ×3 (05:54→18:52)
[2020-03-22 08:04] LABS: MAGNESIUM 2.6 mg/dL (1.80-2.40); PHOSPHORUS 7.7 mg/dL (2.5-4.9)
[2020-03-22] MEDS: MIDAZOLAM 100MG-0.9% NS 100ML 100ML BAG IV SCH (09:20)
[2020-03-22] MEDS: FENTANYL 2500MCG+NS 250ML 250 ML IV SCH (09:20)
[2020-03-22] MEDS: PANTOPRAZOLE 40 MG/VIAL IVP SCH (09:21)
[2020-03-22] MEDS: MIDODRINE HCL 5 MG TABLET PO SCH ×3 (09:21→21:00)
[2020-03-22] MEDS: ASCORBIC ACID 500 MG TAB PO SCH (09:21)
[2020-03-22] MEDS: SODIUM BICARBONATE 650 MG TAB PO SCH ×3 (09:21→21:00)
[2020-03-22] MEDS: BUMETANIDE 0.25 MG/ML 4 ML VIAL IVP SCH ×3 (09:21→21:00)
[2020-03-22] MEDS: ENOXAPARIN SODIUM 100 MG/1 ML SQ SCH (09:21)
[2020-03-22] MEDS: ZINC SULFATE 220 CAPSULE PO SCH (09:21)
[2020-03-22] MEDS: ACETYLCYSTEINE 600 MG CAPSULE PO SCH ×2 (09:21→21:00)
[2020-03-22] MEDS: NITROGLYCERIN 1GM/1 INCH PACKET TD SCH (11:15)
[2020-03-22] MEDS: HYDROCORTISONE SOD SUCCINATE 100 MG/2 ML VIAL IV SCH ×2 (12:59→21:00)
--- NOTE | 2020-03-22 15:35 | NUR ---
DC PLAN SPOKE TO FAMILY REGARDING CDA. FINAL PLAN OKAY FOR CDA. WANTS AT LEAST 3-4 MORE DAYS OF IMPROVED 02. LET DR. POST KNOW. LET DIRECTOR KNOW WELL. Addendum: 03/22/20 at 1536 by ZANDRA DONALD RN CM Amended: Links added.
[2020-03-22] MEDS: INSULIN GLARGINE 100 UNITS/ML 10 ML VIAL SQ SCH (21:00)
[2020-03-23] VITALS (67 sets, daily range): BP systolic 71–141; BP diastolic 43–72
[2020-03-23] MEDS: INSULIN HUMULIN R 100 UNIT/ML 3ML SQ SCH ×4 (01:45→18:00)
[2020-03-23] MEDS: ALBUTEROL INHALER 90MCG/INH IH SCH ×6 (01:46→22:00)
[2020-03-23 04:57] LABS: BASOPHILS % (AUTO) 0.1 % (0.0-5.0); HEMATOCRIT 32.4 % (36-48); MEAN CORPUSCULAR HEMOGLOBIN 27.5 pg (27.0-33.0); MEAN CORPUSCULAR HGB CONC 31.8 g/dL (32.0-36.0); MEAN CORPUSCULAR VOLUME 86.4 fL (79-99); MONOCYTES % (AUTO) 1.6 % (3.0-13.0); NEUTROPHILS % (AUTO) 96.6 % (40.0-77.0); PLATELET COUNT (AUTO) 108 K/uL (130-400); RED BLOOD CELL COUNT(AUTO) 3.75 MIL/uL (4.00-5.50); RED CELL DISTRIBUTION WIDTH 17.2 % (11.0-15.5); WHITE BLOOD COUNT (AUTO) 15.4 K/uL (4.8-10.8)
[2020-03-23 05:42] LABS: ALBUMIN 1.9 g/dL (3.5-5.0); BILIRUBIN,TOTAL 0.7 mg/dL (0.2-1.0); CREATININE 4.5 mg/dL (0.5-1.5); CRP QUANTITATIVE 67.8 mg/L (0.00-9.0); POTASSIUM 3.8 mmol/L (3.5-5.1); TOTAL PROTEIN, SERUM 6.1 g/dL (6.0-8.3)
[2020-03-23] MEDS ORDERED: RENAL DOSE IV SCH (08:30)
[2020-03-23] MEDS ORDERED: MEROPENEM 500 MG VIAL IVP SCH (08:30)
[2020-03-23 09:28] LABS: ABG BASE EXCESS -4.1 mmol/L (-2.0-3.0); ABG PCO2 44 mmHg (32-45)
[2020-03-23] MEDS: MEROPENEM 500 MG VIAL IVP SCH ×2 (09:56→20:51)
[2020-03-23] MEDS: MIDODRINE HCL 5 MG TABLET PO SCH ×3 (09:58→20:52)
[2020-03-23] MEDS: ASCORBIC ACID 500 MG TAB PO SCH (09:59)
[2020-03-23] MEDS: ZINC SULFATE 220 CAPSULE PO SCH (09:59)
[2020-03-23] MEDS: SODIUM BICARBONATE 650 MG TAB PO SCH ×3 (09:59→20:55)
[2020-03-23] MEDS: NITROGLYCERIN 1GM/1 INCH PACKET TD SCH (10:10)
[2020-03-23] MEDS: ENOXAPARIN SODIUM 100 MG/1 ML SQ SCH (10:10)
[2020-03-23] MEDS: BUMETANIDE 0.25 MG/ML 4 ML VIAL IVP SCH ×3 (10:13→20:51)
[2020-03-23] MEDS: PANTOPRAZOLE 40 MG/VIAL IVP SCH (10:13)
[2020-03-23] MEDS: ACETYLCYSTEINE 600 MG CAPSULE PO SCH ×2 (10:14→20:52)
[2020-03-23] MEDS: HYDROCORTISONE SOD SUCCINATE 100 MG/2 ML VIAL IV SCH ×2 (10:47→20:51)
[2020-03-23] MEDS: MIDAZOLAM 100MG-0.9% NS 100ML 100ML BAG IV SCH (11:05)
[2020-03-23] MEDS: SODIUM BICARBONATE 650 MG TAB NG PRN (20:52)
[2020-03-23] MEDS: INSULIN GLARGINE 100 UNITS/ML 10 ML VIAL SQ SCH (21:01)
[2020-03-24] VITALS (65 sets, daily range): BP systolic 112–145; BP diastolic 49–69
[2020-03-24] MEDS: ALBUTEROL INHALER 90MCG/INH IH SCH ×6 (00:44→22:00)
[2020-03-24 04:09] LABS: BASOPHILS % (AUTO) 0.1 % (0.0-5.0); HEMATOCRIT 35.5 % (36-48); LYMPHOCYTES % (AUTO) 0.9 % (21.0-51.0); MEAN CORPUSCULAR HEMOGLOBIN 27.9 pg (27.0-33.0); MEAN CORPUSCULAR HGB CONC 32.7 g/dL (32.0-36.0); MEAN CORPUSCULAR VOLUME 85.3 fL (79-99); MONOCYTES % (AUTO) 1.6 % (3.0-13.0); NEUTROPHILS % (AUTO) 96.6 % (40.0-77.0); PLATELET COUNT (AUTO) 115 K/uL (130-400); RED BLOOD CELL COUNT(AUTO) 4.16 MIL/uL (4.00-5.50); RED CELL DISTRIBUTION WIDTH 17.2 % (11.0-15.5); WHITE BLOOD COUNT (AUTO) 17.9 K/uL (4.8-10.8)
[2020-03-24 04:31] LABS: ALBUMIN 1.9 g/dL (3.5-5.0); BILIRUBIN,TOTAL 0.8 mg/dL (0.2-1.0); CREATININE 4.9 mg/dL (0.5-1.5); POTASSIUM 3.9 mmol/L (3.5-5.1); TOTAL PROTEIN, SERUM 6.2 g/dL (6.0-8.3)
[2020-03-24] MEDS: INSULIN HUMULIN R 100 UNIT/ML 3ML SQ SCH ×4 (06:00→17:15)
[2020-03-24] MEDS ORDERED: PHARMACY COMMUNICATION MISC SCH ×2 (08:00→08:45)
[2020-03-24] MEDS: BUMETANIDE 0.25 MG/ML 4 ML VIAL IVP SCH ×3 (08:13→19:13)
[2020-03-24] MEDS: MEROPENEM 500 MG VIAL IVP SCH ×2 (08:13→19:13)
[2020-03-24] MEDS: HYDROCORTISONE SOD SUCCINATE 100 MG/2 ML VIAL IV SCH (08:13)
[2020-03-24] MEDS: ENOXAPARIN SODIUM 100 MG/1 ML SQ SCH (08:14)
[2020-03-24] MEDS: ZINC SULFATE 220 CAPSULE PO SCH (08:34)
[2020-03-24] MEDS: ACETYLCYSTEINE 600 MG CAPSULE PO SCH (08:34)
[2020-03-24] MEDS: SODIUM BICARBONATE 650 MG TAB PO SCH ×3 (08:34→19:14)
[2020-03-24] MEDS: ASCORBIC ACID 500 MG TAB PO SCH (08:34)
[2020-03-24] MEDS: MIDODRINE HCL 5 MG TABLET PO SCH ×3 (08:34→19:13)
[2020-03-24] MEDS: PANTOPRAZOLE 40 MG/VIAL IVP SCH (08:52)
[2020-03-24] MEDS: MIDAZOLAM 100MG-0.9% NS 100ML 100ML BAG IV SCH (11:00)
[2020-03-24] MEDS: NITROGLYCERIN 1GM/1 INCH PACKET TD SCH (11:06)
[2020-03-24] MEDS ORDERED: HEPARIN SODIUM 5000UNIT/ML 1ML VIAL ONE (14:27)
[2020-03-24] MEDS ORDERED: ALBUMIN (HUMAN) 25% 200 ML IV ONE (14:54)
[2020-03-24] MEDS ORDERED: 0.9% SODIUM CHLORIDE 1000 ML IV BAG IV PRN (16:00)
[2020-03-24] MEDS ORDERED: SODIUM CHLORIDE 0.9% 1000ML 1,000 ML IV PRN (16:00)
[2020-03-24] MEDS ORDERED: NITROGLYCERIN 0.4 MG SL TAB SL PRN (16:00)
[2020-03-24] MEDS ORDERED: HEPARIN SODIUM 5000UNIT/ML 1ML VIAL IJ PRN (16:00)
[2020-03-24] MEDS ORDERED: DEXTROSE 50%-WATER 50 ML DISP.SYRIN IV ONE (17:13)
[2020-03-24] MEDS: SODIUM BICARBONATE 650 MG TAB NG PRN (19:13)
[2020-03-24] MEDS ORDERED: INSULIN GLARGINE 100 UNITS/ML 10 ML VIAL SQ SCH (21:00)
[2020-03-24] MEDS ORDERED: ACETYLCYSTEINE 600 MG CAPSULE GT SCH (21:00)
[2020-03-25] VITALS (81 sets, daily range): BP systolic 56–172; BP diastolic 26–118
[2020-03-25] MEDS: ALBUTEROL INHALER 90MCG/INH IH SCH ×2 (02:12→05:26)
[2020-03-25 05:30] LABS: BASOPHILS % (AUTO) 0.1 % (0.0-5.0); EOSINOPHILS % (AUTO) 0.1 % (0.0-8.0); HEMATOCRIT 30.7 % (36-48); LYMPHOCYTES % (AUTO) 1.2 % (21.0-51.0); MEAN CORPUSCULAR HEMOGLOBIN 28.4 pg (27.0-33.0); MEAN CORPUSCULAR HGB CONC 32.9 g/dL (32.0-36.0); MEAN CORPUSCULAR VOLUME 86.2 fL (79-99); MONOCYTES % (AUTO) 1.5 % (3.0-13.0); NEUTROPHILS % (AUTO) 96.3 % (40.0-77.0); NUCLEATED RED BLOOD CELLS 0.2 % (0.0-0.19); PLATELET COUNT (AUTO) 63 K/uL (130-400); RED BLOOD CELL COUNT(AUTO) 3.56 MIL/uL (4.00-5.50); RED CELL DISTRIBUTION WIDTH 17.6 % (11.0-15.5)
[2020-03-25 05:46] LABS: ALBUMIN 2.1 g/dL (3.5-5.0); CREATININE 4.1 mg/dL (0.5-1.5); CRP QUANTITATIVE 54.9 mg/L (0.00-9.0); PHOSPHORUS 6.2 mg/dL (2.5-4.9); POTASSIUM 3.4 mmol/L (3.5-5.1); TOTAL PROTEIN, SERUM 5.6 g/dL (6.0-8.3)
[2020-03-25] MEDS: INSULIN HUMULIN R 100 UNIT/ML 3ML SQ SCH ×4 (06:00→18:00)
[2020-03-25] MEDS: ASCORBIC ACID 500 MG TAB PO SCH (09:00)
[2020-03-25] MEDS ORDERED: BALSAM PERU/CASTOR OIL 60 GM TUBE TP SCH (09:00)
[2020-03-25] MEDS: SODIUM BICARBONATE 650 MG TAB PO SCH (09:00)
[2020-03-25] MEDS: ZINC SULFATE 220 CAPSULE PO SCH (09:00)
[2020-03-25] MEDS ORDERED: VECURONIUM BROMIDE 10 MG ML IV PRN (10:30)
[2020-03-25] MEDS: PANTOPRAZOLE 40 MG/VIAL IVP SCH (10:58)
[2020-03-25] MEDS: MIDODRINE HCL 5 MG TABLET PO SCH ×2 (10:59→14:00)
[2020-03-25] MEDS: MIDAZOLAM 100MG-0.9% NS 100ML 100ML BAG IV SCH (11:00)
[2020-03-25] MEDS: NITROGLYCERIN 1GM/1 INCH PACKET TD SCH (11:15)
[2020-03-25] MEDS ORDERED: PHARMACY COMMUNICATION MISC SCH (11:45)
[2020-03-25] MEDS ORDERED: NOREPINEPHRINE BITARTRATE 32 MG in SODIUM CHLORIDE 0.9% 250 ML IV SCH (12:00)
[2020-03-25] MEDS ORDERED: VECURONIUM BROMIDE 50 MG in SODIUM CHLORIDE 0.9% 50 ML IV PRN (12:00)
[2020-03-25] MEDS ORDERED: DEXTROSE 50%-WATER 50 ML DISP.SYRIN IV ONE ×2 (12:30→14:52)
[2020-03-25] MEDS: HYDROCORTISONE SOD SUCCINATE 100 MG/2 ML VIAL IV SCH ×2 (12:55→18:00)
[2020-03-25] MEDS ORDERED: BUMETANIDE 0.25 MG/ML 4 ML VIAL IV SCH (14:00)
[2020-03-25 14:31] LABS: BASE EXCESS,VENOUS BLOOD GAS -12.9 (-2.0-3.0); HCO3,VENOUS BLOOD GAS 15.9 (21.0-28.0); PCO2,VENOUS BLOOD GAS 49 (32-45); PH,VENOUS BLOOD GAS 7.132 (7.350-7.450)
[2020-03-25 14:58] LABS: HEMATOCRIT 33.1 % (36-48); MEAN CORPUSCULAR HEMOGLOBIN 28.3 pg (27.0-33.0); MEAN CORPUSCULAR HGB CONC 30.8 g/dL (32.0-36.0); MEAN CORPUSCULAR VOLUME 91.7 fL (79-99); PLATELET COUNT (AUTO) 44 K/uL (130-400); RED BLOOD CELL COUNT(AUTO) 3.61 MIL/uL (4.00-5.50); RED CELL DISTRIBUTION WIDTH 18.2 % (11.0-15.5)
[2020-03-25 14:59] LABS: BILIRUBIN,TOTAL 1.5 mg/dL (0.2-1.0); CREATININE 3.5 mg/dL (0.5-1.5); TOTAL PROTEIN, SERUM 5.1 g/dL (6.0-8.3)
[2020-03-25 15:49] LABS: BAND NEUTROPHILS % (MANUAL) 26 % (0-2); EOSINOPHILS % (MANUAL) 3 % (1-6); LYMPHOCYTES % (MANUAL) 7 % (22-44); MAN.DIFF COMMENT-IMPRESSION MANUAL DIFFERENTIAL; SEGMENTED NEUTROPHILS % 64 % (40-70)
--- NOTE | 2020-03-25 19:15 | NUR ---
Note Patient coded at 1359 per ACLS protocol with ROSC. Goals of care discussion resulted in family, renetta Hurtado [phone] providing telephone consent for do not resuscitate order. Patient has been hemodynamically unstable since 1045 and time of was declared at 1847 on 03-25-2020. TOSA notified. All appropriate hospital staff notified.
[2020-03-26] MEDS ORDERED: ENOXAPARIN SODIUM 100 MG/1 ML SQ SCH (09:00)
== END 2020-03-25 18:47 | disposition expired | DRG 720 ==
LOC: EDH 00:09 → EDHIP 00:10 → 2AH 09:30 → 2BH 03-10 04:29
PROVIDERS: ADMIT Internal Medicine; ATTEND Internal Medicine
PROC: 5A09457 Assistance with Respiratory Ventilation, 24-96 Consecutive Hours, Continuous Positive Airway Pressure (ICD-10-PCS; principal; 2020-03-05)
PROC: XW13325 Transfusion of Convalescent Plasma (Nonautologous) into Peripheral Vein, Percutaneous Approach, New Technology Group 5 (ICD-10-PCS; 2020-03-06)
PROC: 5A1955Z Respiratory Ventilation, Greater than 96 Consecutive Hours (ICD-10-PCS; 2020-03-10)
PROC: 0BH17EZ Insertion of Endotracheal Airway into Trachea, Via Natural or Artificial Opening (ICD-10-PCS; 2020-03-10)
PROC: 5A09357 Assistance with Respiratory Ventilation, Less than 24 Consecutive Hours, Continuous Positive Airway Pressure (ICD-10-PCS; 2020-03-10)
PROC: 02HV33Z Insertion of Infusion Device into Superior Vena Cava, Percutaneous Approach (ICD-10-PCS; 2020-03-23)
PROC: B548ZZA Ultrasonography of Superior Vena Cava, Guidance (ICD-10-PCS; 2020-03-23)
PROC: 5A1D70Z Performance of Urinary Filtration, Intermittent, Less than 6 Hours Per Day (ICD-10-PCS; 2020-03-24)
PROC: 5A1D70Z Performance of Urinary Filtration, Intermittent, Less than 6 Hours Per Day (ICD-10-PCS; 2020-03-25)
PROC: 5A12012 Performance of Cardiac Output, Single, Manual (ICD-10-PCS; 2020-03-25)
DX: A41.51 Sepsis due to Escherichia coli [E. coli] (principal); U07.1 COVID-19; N18.9 Chronic kidney disease, unspecified; J96.01 Acute respiratory failure with hypoxia; N17.9 Acute kidney failure, unspecified; J12.89 Other viral pneumonia; I13.0 Hypertensive heart and chronic kidney disease with heart failure and stage 1 through stage 4 chronic kidney disease, or unspecified chronic kidney disease; E11.22 Type 2 diabetes mellitus with diabetic chronic kidney disease; I50.43 Acute on chronic combined systolic (congestive) and diastolic (congestive) heart failure; E87.2 Acidosis; R65.21 Severe sepsis with septic shock; N39.0 Urinary tract infection, site not specified; K74.60 Unspecified cirrhosis of liver; E66.01 Morbid (severe) obesity due to excess calories; Z68.41 Body mass index [BMI] 40.0-44.9, adult; E87.6 Hypokalemia; Z79.899 Other long term (current) drug therapy; D64.9 Anemia, unspecified; E78.5 Hyperlipidemia, unspecified; E86.0 Dehydration; E87.0 Hyperosmolality and hypernatremia; G93.41 Metabolic encephalopathy; I16.0 Hypertensive urgency; I25.10 Atherosclerotic heart disease of native coronary artery without angina pectoris; I25.5 Ischemic cardiomyopathy; I46.9 Cardiac arrest, cause unspecified; L89.159 Pressure ulcer of sacral region, unspecified stage; Z16.12 Extended spectrum beta lactamase (ESBL) resistance; Z16.24 Resistance to multiple antibiotics; Z74.01 Bed confinement status; Z79.01 Long term (current) use of anticoagulants; Z79.02 Long term (current) use of antithrombotics/antiplatelets; Z79.4 Long term (current) use of insulin; Z79.82 Long term (current) use of aspirin; Z79.890 Hormone replacement therapy; Z99.11 Dependence on respirator [ventilator] status; Z95.810 Presence of automatic (implantable) cardiac defibrillator; Z95.0 Presence of cardiac pacemaker; Z89.512 Acquired absence of left leg below knee; Z83.3 Family history of diabetes mellitus
CPT/HCPCS: 31500; 36415; 36430; 36600; 71045; 76770; 80048; 80053; 81001; 82140; 82435; 82550; 82570; 82728; 82803; 82947; 82948; 83036; 83605; 83615; 83735; 83874; 83880; 84100; 84132; 84145; 84295; 84300; 84484; 84550; 85018; 85025; 85378; 85610; 85730; 86140; 86900; 86901; 86927; 87040; 87071; 87077; 87088; 87186; 87205; 87324; 87426; 87486; 87581; 87633; 87798; 87804; 90935; 92950; 93005; 93306; 93356; 94002; 94003; 94660; 99291; C1751; C1894; C9113; G0378; J0456; J0696; J1100; J1644; J1650; J1720; J1815; J1940; J2060; J2185; J2250; J2704; J2765; J2920; J2930; J3010; J3475; J3480; J3490; J7050; J7070; P9046; P9047